=== PATIENT | male | born 1970 | race Caucasian/White ===

== ENCOUNTER 2024-04-13 09:59 | Inpatient (IN) | payer OTHER ==
--- OUTSIDE RECORDS SUMMARY | 2024-04-13 10:04 | XMS REPORT | Clinical Summary ---
Author Name Unknown Organization [facility] Address [address] [place] [address] Care Team Providers Care Pharmacoepidemiologist Name Role Phone Doe Tse MD Unavailable [phone] Sanchez Blanchard MD Primary Care Provider Zack Arcos MD Unavailable [phone] Nakul Angeles MD Unavailable + Peterson Rhodes MD Unavailable Kelvin Delong MD Unavailable Allergies Active Allergy Reactions Criticality Noted Date Comments Penicillins Hives,Rash Low 10/04/2017 Medications Medication Sig Dispensed Refills Start Date End Date Status ticagrelor (BRILINTA) 90 mg tablet Take 1 tablet (90 mg) by mouth daily. Active metFORMIN (GLUCOPHAGE-XR) 750 mg 24 hr tablet TAKE 1 TABLET BY MOUTH TWICE DAILY WITH MEALS 12/16/2020 Active omeprazole (PriLOSEC) 20 mg capsule Take 1 capsule (20 mg) by mouth. Active Jardiance 25 mg tab TAKE 1 TABLET BY MOUTH EVERY DAY 12/16/2020 Active lisinopril (PRINIVIL,ZESTRIL) 20 mg tablet 01/06/2021 Active aspirin 81 mg EC tablet Take 1 tablet (81 mg) by mouth daily. Active rosuvastatin (CRESTOR) 20 mg tablet TAKE 1 TABLET BY MOUTH EVERY DAY 12/16/2020 Active ezetimibe (ZETIA) 10 mg tablet TAKE 1 TABLET BY MOUTH DAILY 10/31/2020 Active cholecalciferol, vitamin D3, 1,250 mcg (50,000 unit) capsule TK ONE C PO Q 2 WEEKS 07/07/2020 Active zinc 50 mg tab Take 50 mg by mouth daily. Active HYDROcodone-acetamino phen (Lorane) 5 mg-325 mg per tabletIndications:Met astatic malignant melanoma Take 1 tablet by mouth every 6 (six) hours as needed for severe pain. 5 tablet 01/26/2021 Active multivitamin tab tablet Take 1 tablet by mouth daily. Active glucosamine sulfate 500 mg tab Take by mouth daily. Active co-enzyme Q-10 30 mg capsule Take 1 capsule (30 mg) by mouth daily. Active Active Problems Problem Noted Date Diagnosed Date Encounter for follow-up exam ination after completed treatment for malignant neoplasm 10/07/2023 Kidney lesion 01/02/2023 Last Assessment & Plan: Stable, followed by Urology. Monitor. Alkaline phosphatase raised 01/14/2022 Last Assessment & Plan: Mildly elevated and stable at 148. We will continue to monitor. Imaging of brain abnormal 08/16/2021 Last Assessment & Plan: Monitor punctate focus of enhancement in the right basal ganglia on repeat MRI brain in 1 month. Screening for thyroid disorder 08/16/2021 Encounter for preprocedural laboratory examinati on 05/10/2021 Screening for cardiovascular conditions 05/10/20 21 Malignant melanoma of right upper limb including shoulder 02/20/2021 Last Assessment & Plan: MRI brain negative. CT CAP shows 1. Left renal complex cystic lesion, for urologic consultation, if clinically indicated. 2. Indeterminate hypoattenuating lesion within segment 2 of the liver, may relate to a hemangioma but could be further characterized by MRI, if clinically indicated. 3. Stable bilateral adrenal nodules, previously described as adenomas. These could be further characterized at the same time by MRI, if clinically indicated. Mr. Cano will continue on observation. He will return in 8 weeks with MRI abdomen/ pelvis for further evaluation of the liver and left renal cyst. He will continue self-skin and job exams in the interim and will notify us of any changes to his health status. 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 His diabetes is managed by his PCP, who he is seeing tomorrow. Continue management per his PCP. 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 His most recent stent placement was in 06/2020. He will be evaluated in the [facility], who may recommend a Cardiology Consult as well. They will advise on best practice in terms of withholding his anticoagulation in terms of timing with surgery. Metastatic malignant melanoma 01/06/2021 Cancer Staging:Pathologic stage from 01/26/2021:Stage IIIA(pT2a, pN1a, cM0) - Signed by Nicole Zelaya PA on 02/20/2021 Overview: Added automatically from request for surgery [id number] Last Assessment & Plan: Mr. Cano is a 53 y/o male who is approaching 3 years s/p surgical management of a Stage IIIA melanoma of the RUE. He no evidence of recurrence or metastasis on clinical exam or US today. He does have, on FBSE, a skin lesion with asymmetry of dark pigment noted on the right anterior thigh for which biopsy was being considered. He elected to leave the clinic before Dr. Blanchard could see him. 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 We will plan to see him back 4 months with repeat US of his right axilla. Resolved Problems Problem Noted Date Diagnosed Date Resolved Date Encounter for other preprocedural examination 09/13/20 10/07/2023 Encounters Date Type Department Care Team Description 12/23/2023 11:30 AM WILLOW WORKER Follow-Up [facility] [facility], 9th [place] [address] Sanchez Blanchard MD Metastatic malignant melanoma (Primary Dx) 12/23/2023 9:30 AM WILLOW WORKER Ancillary Procedure General Ultrasound [address] [facility], 5th [place] [address] Sanchez Blanchard MD Metastatic malignant melanoma 12/23/2023 Travel 12/09/2023 3:00 PM WILLOW WORKER Telemedicine MD Griffith in [facility] Urology [address] [place] [id number] Peterson Rhodes MD Wolf, Elizabeth A., PA Metastatic malignant melanoma; Abnormal radiologic finding on diagnostic imaging of left kidney 12/04/2023 Orders Only MD Griffith in [facility] [employer] - Urology [address] [place] [id number] Beverley Crews PA 10/07/2023 9:00 AM WILLOW WORKER Telemedicine [facility] - Medical Oncology [address] [facility], 9th [facility] [place] [phone] Nakul Angeles MD Encounter for follow-up examination after completed treatment for malignant neoplasm (Primary Dx); Metastatic malignant melanoma; Secondary and unspecified malignant neoplasm of axilla and upper limb lymph nodes; Kidney lesion; Malignant melanoma of right upper limb including shoulder; Screening for thyroid disorder 10/04/2023 11:15 AM WILLOW WORKER Ancillary Procedure Radiology Outpatient Center [address] [place] [address] Vanessa Padilla PA Metastatic malignant melanoma; Secondary and unspecified malignant neoplasm of axilla and upper limb lymph nodes; 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; Malignant melanoma of right upper limb including shoulder 10/04/2023 8:25 AM WILLOW WORKER Ancillary Procedure CT Imaging [address] [facility], 7th Floor Elevator [place], [place] [phone] Vanessa Padilla PA Metastatic malignant melanoma; Secondary and unspecified malignant neoplasm of axilla and upper limb lymph nodes; 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; Malignant melanoma of right upper limb including shoulder 10/04/2023 8:10 AM WILLOW WORKER - 10/04/2023 11:59 PM WILLOW WORKER Hospital Encounter [facility] [address] [place] [address] Vanessa Padilla PA Metastatic malignant melanoma; Screening for thyroid disorder Discharge Disposition: Home 06/09/2023 Orders Only [facility] [address] [facility], 9th [place] [address] Elva Tay PA-C Metastatic malignant melanoma (Primary Dx) 05/27/2023 11:30 AM CDT [facility]Up [facility] - [facility] Oncology [address] [facility], 9th [place] [address] Sanchez Blanchard MD Metastatic malignant melanoma 05/27/2023 9:00 AM CDT Ancillary Procedure General Ultrasound [address] [facility], 5th [place] [address] Elva Tay, GERALDO Metastatic malignant melanoma 05/27/2023 Travel 05/24/2023 Orders Only MD [facility] in [facility] - Urology [address] [place] [address] Beverley Crews PA Metastatic malignant melanoma (Primary Dx); Abnormal radiologic finding on diagnostic imaging of left kidney 05/23/2023 2:00 PM CDT Telemedicine MD [facility] in [facility] - Urology [address] [place] [address] Peterson Rhodes MD Metastatic malignant melanoma (Primary Dx); Abnormal radiologic finding on diagnostic imaging of left kidney 05/13/2023 11:45 AM CDT Telemedicine [facility] Medical [facility]cology [address] [facility], 9th [place] [phone] Nakul Angeles MD Encounter for other preprocedural examination (Primary Dx); Metastatic malignant melanoma; Secondary and unspecified malignant neoplasm of axilla and upper limb lymph nodes; 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; Malignant melanoma of right upper limb including shoulder; Screening for thyroid disorder; Kidney lesion 05/13/2023 Orders Only Neuroradiology [address] [place] [address] Brian Lopez PA 05/10/2023 10:05 AM CDT - 05/10/2023 11:59 PM CDT Hospital Encounter Main CT IMAGING [address] [place] [address] Main [facility], 3rd [place] [address] Maida Melton PA Metastatic malignant melanoma; Secondary and unspecified malignant neoplasm of axilla and upper limb lymph nodes; Malignant melanoma of right upper limb including shoulder Discharge Disposition: Home 05/10/2023 9:55 AM CDT - 05/10/2023 10:04 AM CDT Hospital Encounter [facility] [address] [place] [address], [place] [address] Maida Melton PA Metastatic malignant melanoma Discharge Disposition: Home after 04/14/2023 Immunizations Name Administration Dates Next Due Moderna SARS-CoV-2 Vaccination 11/30/2020,2020 Surgical History Surgery Date Site/Laterality Comments BACK SURGERY 10/21/2009 - 10/20/2010 HERNIA REPAIR 10/21/2007 - 10/20/2008 CORONARY ANGIOPLASTY WITH STENT PLACEMENT 10/07/2017 [facility] int he mid LAD KNEE SURGERY Right x 5 EXCISION WIDE LOCAL TRUNK 12/01/2015 melanoma in situ of back CORONARY ANGIOPLASTY WITH STENT PLACEMENT date unknown -?09/2017 but per cardiac cath dated : "LCx Patent stent and moderate disease of the distal OM1 " CORONARY ANGIOPLASTY WITH STENT PLACEMENT 07/05/2020 per individual small group instructor's note, pt had "stent of proximal LAD". type of stent not noted VA EXCISION MAL LESION TRUNK/ARM/LEG 0.6-1.0 CM 01/26/2021 Right Procedure: EXCISION OF MALIGNANT LESION OF ARM(S)- right posterior upper arm; Surgeon: Sanchez Blanchard MD; Location: MAIN OR; Service: SURG ONC - [facility] VA INJ RADIOACTIVE TRACER FOR ID OF SENTINEL NODE 01/26/2021 Right Procedure: ISOTOPE INJECTION FOR SENTINEL NODE BIOPSY; Surgeon: Sanchez Blanchard MD; Location: MAIN OR; Service: SURG ONC - [facility] VA BX/EXC LYMPH NODE OPEN SUPERFICIAL 01/26/2021 Right Procedure: BIOPSY OR EXCISION OF SUPERFICIAL LYMPH NODE; Surgeon: Sanchez Blanchard MD; Location: MAIN OR; Service: SURG ONC - [facility] Medical History Medical History Date Comments Hypertension 2011 Type 2 diabetes mellitus 2016 on Jard iance and Metformin Melanoma in situ 12/01/2015 per patent, on his back, treated with WLE at [facility] Coronary arteriosclerosis 2017 pt den ies NE. per pt, he has 6 stents in placed. per pt 2 stents were placed in 09/2017 and then reportedly 2 wks later 2 addtl stents were placed. pt reports that he had "chest discomfort" and reportedly had 2 addtl stents in in 06/2020 Hypercholesterolemia Tobacco dependence caused by cigarettes Body mass index (BMI) 36.0-36.9, adult 1 group home use of antiplatelet wilson s been on DAPT with aspirin and Brilinta for cardiac stents since 09/2017 Sleep disorder uses CPAP Sleep apnea Obstructive sleep apnea does not use CPAP Gastroesophageal reflux disease Family History Medical History Relation Name Comments Diabetes Father Hypertension Father VTE Father PE was COD at 7 7 Melanoma Maternal Grandfather Breast cancer Mother Prostate cancer Paternal Grandfather Bleeding Disorder Neg Hx Coronary artery disease Neg Hx Stroke Neg Hx Relation Name Status Comments Father Maternal Grandfather Mother Paternal Grandfather Social History Tobacco Use Types Packs/Day Years Used Date Smoking Tobacco: Every Day Cigarettes 2 30 Smokeless Tobacco: Never Tobacco Cessation:Ready to Q uit: No; Counseling Given: Yes Alcohol Use Standard Drinks/Week Comments Not Currently 30 (1 standard drink = 0.6 oz pu re alcohol) 4-5 12 oz of beer per day Sex and Gender Information Value Date Recorded Sex Assigned at Not on file Gender Identity Not on file Sexual Orientation Not on file Job Start Date Occupation Industry Not on file Not on file Not on file Obstetrics History Last Filed Vital Signs Vital Sign Reading Time Taken Comments Blood Pressure 119/76 12/23/2023 11:27 AM WILLOW WORKER Pulse 102 12/23/2023 11:27 AM WILLOW WORKER Temperature 36.8 C (98.2 F) 12/23/2023 1 1:27 AM WILLOW WORKER Respiratory Rate 18 12/23/2023 11:2 7 AM WILLOW WORKER Oxygen Saturation - - Inhaled Oxygen Concentration - - Weight 118.5 kg (261 lb 3.9 oz) 023 11:38 AM WILLOW WORKER Height - - Body Mass Index 36.45 01/25/2023 10:03 AM CDT Plan of Treatment Upcoming Encounters Date Type Department Care Team (Late st Contact Info) Description 04/26/2024 6:15 AM CDT Appointment Main CT IMAGING [facility], 3rd [place] [address] [place] [address] [place] [phone] [email or web address] 04/26/2024 8:45 AM CDT Appointment [facility] [address] [place] [address], [place] [address] Vanessa Padilla PA [address] [place] [address] [email or web address] 04/27/2024 9:30 AM CDT Ancillary Procedure General Ultrasound [address] [facility], 5th [place] [address] Elva Tay PA-C [address] [place] [address] [email or web address] 04/27/2024 11:15 AM CDT Follow-Up [facility] - Surgical Oncology [address] [facility], 9th [place] [address] Sanchez Blanchard MD [address] [place] [address] [email or web address] 04/28/2024 11:45 AM CDT Telemedicine [facility] - Medical Oncology [address] [facility] Main Bldg, 9th [place] [address] Nakul Angeles MD [address] [place], [place] [id number] [email or web address] 04/28/2024 2:30 PM CDT Telemedicine MD Griffith in [facility] - Urology [address] [place] [address] Peterson Rhodes MD [address] [place], [place] [phone] [email or web address] Health Maintenance Due Date Last Done Comments COVID-19 Vaccine ( season) 06/21/202307/2021, 11/09/2020 Influenza Vaccine 06/21/2024 Medical Devices Implanted Type Area [employer] Device Identifier Shelf Expiration Date Model / Serial / Lot Cardiac Stents Heart Procedures Procedure Name Priority Date/Time Associated Diagnosis Comments US UPPER EXTREMITY LIMITED RIGHT Routine 12/23/2023 9:45 AM WILLOW WORKER Metastatic malignant melanoma MRI BRAIN W WO CONTRAST Routine 10/04/20 12:49 PM WILLOW WORKER Metastatic malignant melanoma 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 Malignant melanoma of right upper limb including shoulder .CBC Routine 10/04/2023 11:09 AM WILLOW WORKER Metastatic malignant melanoma URIC ACID Routine 10/04/2023 11:09 AM WILLOW WORKER Metastatic malignant melanoma THYROID STIMULATING HORMONE Routine 10/04/2023 11:09 AM WILLOW WORKER Metastatic malignant melanoma Screening for thyroid disorder MAGNESIUM LEVEL Routine 10/04/2023 11:09 AM WILLOW WORKER Metastatic malignant melanoma LACTATE DEHYDROGENASE Routine 10/04/2023 11:09 AM WILLOW WORKER Metastatic malignant melanoma FREE THYROXINE Routine 10/04/2023 11:09 AM WILLOW WORKER Metastatic malignant melanoma Screening for thyroid disorder COMPREHENSIVE METABOLIC PANEL Routine 10/04/2023 11:09 AM WILLOW WORKER Metastatic malignant melanoma COMPLETE BLOOD COUNT W/ DIFFERENTIAL Routine 10/04/2023 11:09 AM WILLOW WORKER Metastatic malignant melanoma CT CHEST ABDOMEN PELVIS W CONTRAST Routine 10/04/2023 10:38 AM WILLOW WORKER Metastatic malignant melanoma 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 Malignant melanoma of right upper limb including shoulder POC CREATININE Routine 10/04/2023 10:08 AM WILLOW WORKER US UPPER EXTREMITY LIMITED RIGHT Routine 05/27/2023 8:56 AM CDT Metastatic malignant melanoma CT CHEST ABDOMEN PELVIS W CONTRAST Routine 05/10/2023 12:46 PM CDT Metastatic malignant melanoma Secondary and unspecified malignant neoplasm of axilla and upper limb lymph nodes Malignant melanoma of right upper limb including shoulder FRACTIONATED BILIRUBIN Routine 10:02 AM CDT Metastatic malignant melanoma TOTAL PROTEIN Routine 05/10/2023 10:02 AM CDT Metastatic malignant melanoma ASPARTATE AMINOTRANSFERASE Routine 05/10/2023 10:02 AM CDT Metastatic malignant melanoma ALANINE AMINOTRANSFERASE Routine 023 10:02 AM CDT Metastatic malignant melanoma ALKALINE PHOSPHATASE Routine 05/10/2023 10:02 AM CDT Metastatic malignant melanoma ALBUMIN LEVEL Routine 05/10/2023 10:02 AM CDT Metastatic malignant melanoma CALCIUM LEVEL Routine 05/10/2023 10:02 AM CDT Metastatic malignant melanoma .GLOMERULAR FILTRATION RATE Routine 05/10/2023 10:02 AM CDT Metastatic malignant melanoma SERUM CREATININE Routine 05/10/2023 10:0 2 AM CDT Metastatic malignant melanoma ELECTROLYTE PANEL Routine 05/10/2023 10: 02 AM CDT Metastatic malignant melanoma BLOOD UREA NITROGEN Routine 05/10/2023 1 0:02 AM CDT Metastatic malignant melanoma GLUCOSE LEVEL Routine 05/10/2023 10:02 AM CDT Metastatic malignant melanoma DIFFERENTIAL Routine 05/10/2023 10:02 AM CDT Metastatic malignant melanoma .CBC Routine 05/10/2023 10:02 AM CDT Metastatic malignant melanoma COMPREHENSIVE METABOLIC PANEL Routine 05/10/2023 10:02 AM CDT Metastatic malignant melanoma LACTATE DEHYDROGENASE Routine 05/10/2023 10:02 AM CDT Metastatic malignant melanoma COMPLETE BLOOD COUNT W/ DIFFERENTIAL Routine 05/10/2023 10:02 AM CDT Metastatic malignant melanoma after 04/14/2023 Results * US Upper Extremity Limited Right (12/23/2023 9:45 AM WILLOW WORKER) Only the most recent of2 resultswithin the time period is included. Anatomical Region Laterality Modality Arm, Extremity Right Ultrasound 12/23/2023 9:48 AM WILLOW WORKER Impressions 12/23/2023 9:52 AM WILLOW WORKER Stable postsurgical changes. No adenopathy, collection or mass seen in the right axilla Narrative 12/23/2023 9:52 AM WILLOW WORKER FULL RESULT: Examination: US UPPER EXTREMITY LIMITED RIGHT on 12/23/2023 9:45 AM Clinical History: Metastatic malignant melanoma Indication: Melanoma Comparison: 05/27/2023 Technique: The right axilla was evaluated with grayscale and color Doppler ultrasound. Findings: Postsurgical changes are seen in the right axilla. No evidence of recurrence or fluid collection. There is no axillary adenopathy. Procedure Note Shad Meadows MD - 12/23/2023 FULL RESULT: Examination: US UPPER EXTREMITY LIMITED RIGHT on 12/23/2023 9:45 AM Clinical History: Metastatic malignant melanoma Indication: Melanoma Comparison: 05/27/2023 Technique: The right axilla was evaluated with grayscale and color Dopplerultrasound. Findings: Postsurgical changes are seen in the right axilla. No evidence ofrecurrence or fluid collection. There is no axillary adenopathy. IMPRESSION: Stable postsurgical changes. No adenopathy, collection or mass seen in theright axilla Sanchez Blanchard MD IMG US ORDERABL ES * MRI Brain with and without Contrast (10/04/2023 12:49 PM WILLOW WORKER) Anatomical Region Laterality Modality Head Magnetic Resonan ce 10/04/2023 10:5 5 PM WILLOW WORKER Impressions 10/04/2023 11:02 PM WILLOW WORKER 1. Stable findings: No evidence for intracranial metastases or acute intracranial pathology 2. No worrisome osseous lesions. Narrative 10/04/2023 11:02 PM WILLOW WORKER FULL RESULT: Examination: MRI BRAIN W WO CONTRAST on 10/04/2023 12:49 PM. 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 FINDINGS: Intracranial: The ventricles are normal in size and within the midline. No restricted diffusion or new foci of T2 susceptibility. Stable punctate susceptibility signal in the right temporal lobe. Stable at least since the baseline study 10/25/2020. Intracranial vascular flow voids are maintained. No sellar/suprasellar abnormalities. No abnormal leptomeningeal or parenchymal enhancement. Extracranial: No suspicious osseous or orbital lesions. The paranasal sinuses are clear. Procedure Note Africa Hammonds MD - 10/04/2023 FULL RESULT: Examination: MRI BRAIN W WO CONTRAST on 10/04/2023 12:49 PM. 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 FINDINGS: Intracranial: The ventricles are normal in size and within the midline. No restricteddiffusion or new foci of T2 susceptibility. Stable punctatesusceptibility signal in the right temporal lobe. Stable at least sincethe baseline study 10/25/2020. Intracranial vascular flow voids aremaintained. No sellar/suprasellar abnormalities. No abnormalleptomeningeal or parenchymal enhancement. Extracranial: No suspicious osseous or orbital lesions. The paranasal sinuses are clear. IMPRESSION: 1. Stable findings: No evidence for intracranial metastases or acuteintracranial pathology 2. No worrisome osseous lesions. Vanessa [facility] [place] ORDERABLES * (ABNORMAL) .CBC (10/04/2023 11:09 AM [facility]) Only the most recent of2 resultswithin the time period is included. White Blood Cell 10.4 4.1 - 10.5 K/uL 10/04/2023 11:26 AM [facility] Red Blood Cell 4.98 4.30 - 6.04 M/uL 10/04/2023 11:26 AM [facility] Hemoglobin 16.6 13.3 - 17.4 g/dL 10/04/2023 11:26 AM [facility] Hematocrit 48.2 39.5 - 51.8 % 10/04/2023 11:26 AM [facility] Mean Cell Volume 97 82 - 99 fL 10/04/2023 11:26 AM [facility] Mean Cell Hemoglobin 33.3(H) 26.6 - 33.2 pg 10/04/2023 11:26 AM [facility] Mean Cell Hemoglobin Concentration 34.4 31.1 - 35.2 g/dL 10/04/2023 11:26 AM [facility] RDW-SD 46.4 37.5 - 49.7 fL 10/04/2023 11:26 AM [facility] Red Cell Diameter Width 13.0 11.6 - 15.5 % 10/04/2023 11:26 AM [facility] Platelet 257 160 - 397 K/uL 10/04/2023 11:26 AM [facility] Mean Platelet Volume 9.4 9.1 - 12.6 fL 10/04/2023 11:26 AM [facility] INRBC 0.0 0.0 - 0.1 /100 WBC 10/04/2023 11:26 AM [facility] Comment: The INRBC (instrument NRBC) value reflects the enumeration of nucleated red blood cells contained in a 200uL sample of whole blood analyzed by the instrument. This value may differ from the NRBC value reported in a manual differential, which is based on a 100 cell differential. Neutrophil % 67.0 43.2 - 72.7 % 10/04/2023 11:26 AM [facility] Lymphocyte % 20.8 16.8 - 46.2 % 10/04/2023 11:26 AM [facility] Monocyte % 8.4 5.1 - 12.5 % 10/04/2023 11:26 AM [facility] Eosinophil % 2.2 0.4 - 6.3 % 10/04/2023 11:26 AM [facility] Basophil % 0.6 0.2 - 1.4 % 10/04/2023 11:26 AM [facility] IGRE % 1.0 0.1 - 1.5 % 10/04/2023 11:26 AM [facility] Comment:The IGRE% includes M etamyelocytes, Myelocytes and Promyelocytes. Neutrophil Abs 6.94 1.95 - 7.25 K/uL 10/04/2023 11:26 AM [facility] Lymphocyte Abs 2.16 1.01 - 3.24 K/uL 10/04/2023 11:26 AM [facility] Monocyte Abs 0.87(H) 0.24 - 0.85 K/uL 10/04/2023 11:26 AM [facility] Eosinophil Abs 0.23 0.02 - 0.50 K/uL 10/04/2023 11:26 AM [facility] Basophil Abs 0.06 0.02 - 0.09 K/uL 10/04/2023 11:26 AM [facility] IG Abs 0.10 0.01 - 0.12 K/uL 10/04/2023 11:26 AM [facility] Blood Venipuncture / Unknown 10/04/2023 11:09 AM [employer] WORK[employer] 10/04/2023 11:10 AM [facility] Vanessa LUIS LAB BLOOD ORDERABLE S [facility] [address] [place] [address] * (ABNORMAL) Comprehensive Metabolic Panel (10/04/2023 11:09 AM [facility]) Bilirubin Total 0.3 <=1.2 mg/dL 10/04/2023 11:57 AM [facility] Comment: Indocyanine Green (ICG) may cause falsely elevated bilirubin results. Total and direct bilirubin must not be measured from samples containing indocyanine green. False elevation of total bilirubin can be seen in patients with IgG concentrations above 28 g/L. This result was previously suppressed from the chart. Bilirubin Direct <0.2 <=0.3 mg/dL 10/04/2023 11:57 AM [facility] Comment: Indocyanine Green (ICG) may cause falsely elevated bilirubin results. Total and direct bilirubin must not be measured from samples containing indocyanine green. This result was previously suppressed from the chart. Bilirubin Indirect 2022 11:57 AM [facility] Comment:Unable to calculate Indirect Bilirubin result due to some parameters are outside reportable range eGFR 111 >=60 mL/min/1. 73 sq. m 10/04/2023 11:57 AM [facility] Comment: The eGFRcr is calculated with the 2020 CKD-EPI creatinine equation using creatinine, patient's age, and sex for adults 18 years of age and older. Other factors, especially muscle mass, may affect accuracy and need to be considered. According to the Kidney Disease: Improving Global Outcomes (KDIGO) CKD Work Group 2012 Clinical Practice Guideline, chronic kidney disease (CKD) is defined as the abnormalities of kidney structure or function, present for more than 3 months, with implications for health. CKD should be classified by cause, GFR category, and albuminuria category. KDIGO guidelines provide the following GFR categories. Stage / Description / GFR mL/min/1.73 m2: G1* / Normal or high / >= 90 G2* / Mildly decreased / 60-89 G3a / Mildly to moderately decreased / 45-59 G3b / Moderately to severely decreased / 30-44 G4 / Severely decreased / 15-29 G5 / Kidney failure / <15 *In the absence of evidence of kidney damage, neither G1 nor G2 fulfill criteria for CKD. Tot Protein 7.3 6.4 - 8.3 gm/dL 10/04/2023 11:57 AM [facility] Comment:This result was prev iously suppressed from the chart. Calcium Level Total 9.5 8.2 - 10.2 mg/dL 10/04/2023 11:57 AM [facility] Comment:This result was prev iously suppressed from the chart. Alkaline Phosphatase 98 40 - 129 U/L 10/04/2023 11:57 AM [facility] Comment:This result was prev iously suppressed from the chart. Albumin Level 4.2 3.5 - 5.2 gm/dL 10/04/2023 11:57 AM [facility] Comment:This result was prev iously suppressed from the chart. AST 20 <=40 U/L 10/04/2023 11:57 AM [facility] Comment:This result was prev iously suppressed from the chart. ALT 27 <=41 U/L 10/04/2023 11:57 AM [facility] Comment:This result was prev iously suppressed from the chart. Sodium Level 133(L) 136 - 145 mmol/L 10/04/2023 11:57 AM [facility] Comment:This result was prev iously suppressed from the chart. Potassium Level 4.3 3.4 - 4.5 mmol/L 10/04/2023 11:57 AM [facility] Comment:This result was prev iously suppressed from the chart. Chloride 98 98 - 107 mmol/L 10/04/2023 11:57 AM [facility] Comment:This result was prev iously suppressed from the chart. CO2 25 22 - 29 mmol/L 10/04/2023 11:57 AM [facility] Comment:This result was prev iously suppressed from the chart. Anion Gap 10 4 - 14 mmol/L 10/04/2023 11:57 AM [facility] Comment:This result was prev iously suppressed from the chart. Creatinine 0.71 0.67 - 1.17 mg/dL 10/04/2023 11:57 AM [facility] Comment:This result was prev iously suppressed from the chart. BUN 11 6 - 23 mg/dL 10/04/2023 11:57 AM [facility] Comment:This result was prev iously suppressed from the chart. Glucose Level 132(H) 70 - 99 mg/dL 10/04/2023 11:57 AM [facility] Comment: Effective 05/16/16, the glucose reference intervals have been updated based on [place] [employer] guidelines (Standards of Medical Care in Diabetes 2016. Diabetes Care 2016; 39: S13-S22). Fasting blood glucose: Normal: 70-99 mg/dL Impaired fasting glucose (increased risk for diabetes or pre-diabetes): 100-125 mg/dL Diabetes mellitus: >/=126 mg/dL Random blood glucose: Normal: 70-199 mg/dL Note: Random glucose >100 mg/dL is associated with increased risk for diabetes. This result was previously suppressed from the chart. Blood Venipuncture / Unknown 10/04/2023 11:09 AM [employer] WORKER 10/04/2023 11:10 AM WILLOW WORKER Vanessa LUIS LAB BLOOD ORDERABLE S Performing Organization Address [facility] Co de Phone Number [address] [place] [address] * Uric Acid (10/04/2023 11:09 AM WILLOW WORKER) Uric Acid 4.4 3.4 - 7.0 mg/dL 10/04/2023 11:57 AM [facility] Blood Venipuncture / Unknown 10/04/2023 11:09 AM [employer] WORKER 10/04/2023 11:10 AM [employer] WORKER Vanessa LUIS LAB BLOOD ORDERABLE S Performing Organization Address [facility] Co de Phone Number [address] [place] [address] * TSH (10/04/2023 11:09 AM WILLOW WORKER) Thyroid Stimulating Hormone 0.99 0.27 - 4.20 mcunit/mL 10/04/2023 12:02 PM WILLOW WORKER [facility] Blood Venipuncture / Unknown 10/04/2023 11:09 AM [employer] WORKER 10/04/2023 11:10 AM [employer] WORKER Vanessa Padilla PA LAB BLOOD ORDERABLE S Performing Organization Address City/[facility]/ZIP Co de Phone Number [address] [place] [address] * Free T4 (10/04/2023 11:09 AM WILLOW WORKER) T4 (Thyroxine) Free 1.23 0.93 - 1.70 ng/dL 10/04/2023 12:02 PM [facility] Blood Venipuncture / Unknown 10/04/2023 11:09 AM [employer] WORKER 10/04/2023 11:10 AM [employer] WORKER Vanessa Padilla PA LAB BLOOD ORDERABLE S Performing Organization Address [facility] Co de Phone Number [address] [place] [address] * Magnesium Level (10/04/2023 11:09 AM WILLOW WORKER) Magnesium Level 2.3 1.6 - 2.6 mg/dL 10/04/2023 11:57 AM [facility] Blood Venipuncture / Unknown 10/04/2023 11:09 AM WILLOW WORKER 10/04/2023 11:10 AM [employer] WORKER Vanessa Padilla PA LAB BLOOD ORDERABLE S Performing Organization Address City/[facility] Co de Phone Number [address] [place] [address] * LDH (10/04/2023 11:09 AM WILLOW WORKER) Only the most recent of2 resultswithin the time period is included. LDH 147 135 - 225 U/L 10/04/2023 11:57 AM [facility] Blood Venipuncture / Unknown 10/04/2023 11:09 AM WILLOW WORKER 10/04/2023 11:10 AM WILLOW WORKER Narrative [facility] - 10/04/2023 11:57 AM WILLOW WORKER Results greater than 1651 U/L may not be reliable due to matrix effect with extended dilution as it exceeds the cloud services architect's recommended limit. Caution should be exercised when interpreting such values and done in conjunction with clinical context. Vanessa LUIS LAB BLOOD ORDERABLE S [facility] [address] [place] [address] * CT Chest Abdomen Pelvis with Contrast (10/04/2023 10:38 AM WILLOW WORKER) Only the most recent of2 resultswithin the time period is included. Anatomical Region Laterality Modality Abdomen, Pelvis, Chest Computed Tomography 10/04/2023 1:39 PM WILLOW WORKER Impressions 10/05/2023 7:04 PM WILLOW WORKER 1. Stable complex left renal cyst, larger than on 01/11/2021, possibly a renal cell carcinoma, to be followed/clinically correlated. 2. No definite CT evidence of metastatic disease. No change. ACTIONABLE ITEMS/RECOMMENDATIONS: See Impression. Narrative 10/05/2023 7:04 PM WILLOW WORKER FULL RESULT: Examination: CT CHEST ABDOMEN PELVIS W CONTRAST on 10/04/2023 10:38 AM. Clinical History: Metastatic malignant melanoma Secondary and unspecified malignant neoplasm of axilla and upper limb lymph nodes Personal history of melanoma in- situ Malignant melanoma of right upper limb including shoulder Indication: Cancer staging or restaging, Metastatic cancer suspected, Multiple incidental pulmonary nodules Comparison: Contrast enhanced CT dated 05/10/2023. Technique: CT of the chest, abdomen and pelvis was performed with oral and intravenous contrast. Additional information from EMR: Right upper extremity, 2020.. CHEST FINDINGS: Lungs and Pleura: Minimal emphysematous changes are noted. There are stable scattered subcentimeter pulmonary nodules (series 302 image 26, 30, 67, 68), stable back to 01/11/2021, likely benign, No definite new pulmonary nodules or masses are identified. No evidence of pleural effusions. Cardiomediastinum: The heart is normal in size. No pericardial effusion. Lymph Nodes: No abnormally enlarged mediastinal, hilar or right axillary nodes are identified. Postsurgical changes are again noted in the right axillary region. Evaluation of the left axillary and subpectoral region is degraded by beam hardening artifact from the IV contrast administration that has been implemented. Nodules are noted in the thyroid gland, nonspecific. Lines and Tubes: None. ABDOMEN AND PELVIS FINDINGS: Hepatobiliary: The liver remains unremarkable. No definite new focal liver lesions are identified. The gallbladder appears grossly unremarkable. No evidence of biliary duct dilatation. Spleen: The spleen remains unremarkable. No focal splenic lesions or splenomegaly. Pancreas: The pancreas remains unremarkable. No evidence of pancreatic duct dilatation. Adrenal Glands: There are stable bilateral adrenal nodules, on the left side measuring up to 2.4 cm (series 301 image 173), stable back to 01/11/2021, likely benign. Kidneys, Ureters, Bladder: In the left kidney, there is a complex renal cyst measuring 2.4 cm (series 301 image 198), similar compared to 05/10/2023, previously 1.7 cm on 01/11/2021, to be followed. The right kidney remains unremarkable. No hydronephrosis. No bladder masses. Gastrointestinal Tract: No obstruction. Pelvis Organs: Unremarkable Peritoneum/Retroperitoneum: No ascites. Lymph Nodes: No abnormally enlarged retrocrural, anterior diaphragmatic, retroperitoneal, mesenteric, pelvic or inguinal nodes are identified. MUSCULOSKELETAL: Some degenerative changes are noted. OTHER: Atherosclerotic changes are noted. Procedure Note Radha Skelton MD - 10/05/2023 FULL RESULT: Examination: CT CHEST ABDOMEN PELVIS W CONTRAST on 10/04/2023 10:38 AM. Clinical History: Metastatic malignant melanoma Secondary and unspecifiedmalignant neoplasm of axilla and upper limb lymph nodes Personal historyof melanoma in- situ Malignant melanoma of right upper limb includingshoulder Indication: Cancer staging or restaging, Metastatic cancer suspected,Multiple incidental pulmonary nodules Comparison: Contrast enhanced CT dated 05/10/2023. Technique: CT of the chest, abdomen and pelvis was performed with oral andintravenous contrast. Additional information from EMR: Right upper extremity, 2020.. CHEST FINDINGS: Lungs and Pleura: Minimal emphysematous changes are noted. There arestable scattered subcentimeter pulmonary nodules (series 302 image 26, 30,67, 68), stable back to 01/11/2021, likely benign, No definite newpulmonary nodules or masses are identified. No evidence of pleural effusions. Cardiomediastinum: The heart is normal in size. No pericardial effusion. Lymph Nodes: No abnormally enlarged mediastinal, hilar or right axillarynodes are identified. Postsurgical changes are again noted in the rightaxillary region. Evaluation of the left axillary and subpectoral region isdegraded by beam hardening artifact from the IV contrast administrationthat has been implemented. Nodules are noted in the thyroid gland, nonspecific. Lines and Tubes: None. ABDOMEN AND PELVIS FINDINGS: Hepatobiliary: The liver remains unremarkable. No definite new focalliver lesions are identified. The gallbladder appears grossly unremarkable. No evidence of biliary ductdilatation. Spleen: The spleen remains unremarkable. No focal splenic lesions orsplenomegaly. Pancreas: The pancreas remains unremarkable. No evidence of pancreaticduct dilatation. Adrenal Glands: There are stable bilateral adrenal nodules, on the leftside measuring up to 2.4 cm (series 301 image 173), stable back to01/11/2021, likely benign. Kidneys, Ureters, Bladder: In the left kidney, there is a complex renalcyst measuring 2.4 cm (series 301 image 198), similar compared to05/10/2023, previously 1.7 cm on 01/11/2021, to be followed. The rightkidney remains unremarkable. No hydronephrosis. No bladder masses. Gastrointestinal Tract: No obstruction. Pelvis Organs: Unremarkable Peritoneum/Retroperitoneum: No ascites. Lymph Nodes: No abnormally enlarged retrocrural, anterior diaphragmatic,retroperitoneal, mesenteric, pelvic or inguinal nodes are identified. MUSCULOSKELETAL: Some degenerative changes are noted. OTHER: Atherosclerotic changes are noted. IMPRESSION: 1. Stable complex left renal cyst, larger than on 01/11/2021, possibly arenal cell carcinoma, to be followed/clinically correlated. 2. No definite CT evidence of metastatic disease. No change. ACTIONABLE ITEMS/RECOMMENDATIONS: See Impression. Vanessa LUIS [facility] [place] ORDERABLES * POC Creatinine (10/04/2023 10:08 AM WILLOW WORKER) POC Creatinine 0.6 0.6 - 1.3 mg/dL 10/04/2023 10:10 AM WILLOW WORKER [place] [facility] Comment:Medications, especia lly hydroxyurea or supplements, such as ascorbate, can interfere with test results causing a falsely and significantly higher result than expected. If a problem is suspected with a patient's result, a sample should be sent to the laboratory for confirmatory testing. POC eGFR 117 >=60 mL/min/1.7 3 sq. m 10/04/2023 10:10 AM [facility] Comment: The eGFRcr is calculated with the 2020 CKD-EPI creatinine equation using creatinine, patient's age, and sex for adults 18 years of age and older. Other factors, especially muscle mass, may affect accuracy and need to be considered. According to the Kidney Disease: Improving Global Outcomes (KDIGO) CKD Work Group 2012 Clinical Practice Guideline, chronic kidney disease (CKD) is defined as the abnormalities of kidney structure or function, present for more than 3 months, with implications for health. CKD should be classified by cause, GFR category, and albuminuria category. KDIGO guidelines provide the following GFR categories. Stage / Description / GFR mL/min/1.73 m2: G1* / Normal or high / >= 90 G2* / Mildly decreased / 60-89 G3a / Mildly to moderately decreased / 45-59 G3b / Moderately to severely decreased / 30-44 G4 / Severely decreased / 15-29 G5 / Kidney failure / <15 *In the absence of evidence of kidney damage, neither G1 nor G2 fulfill criteria for CKD. Blood 10/04/2023 10:0 8 AM WILLOW WORKER 10/04/2023 10:10 AM WILLOW WORKER Narrative [facility] - 10/04/2023 10:10 AM WILLOW WORKER Method description: The i-STAT is an analyzer used for in vitro quantification of various analytes in whole blood. The device uses a single disposable cartridge which contains microfabricated sensors, a calibration solution, fluidics system, and a waste chamber. Each test cartridge contains chemically sensitive biosensors on a silicon chip that are configured to perform specific tests. The microfabricated sensors measure analyte concentration by an electrochemical assay. Vanessa LUIS POCT ORDERABLES - D [facility] Unless otherwise noted, all lab tests performed by: Division of Pathology and Laboratory Medicine [address] [place] [id number] * .Serum Creatinine (05/10/2023 10:02 AM CDT) Creatinine 0.71 0.67 - 1.17 mg/dL [facility] Blood 05/10/2023 10:0 2 AM CDT 05/10/2023 10:34 AM CDT Maida LUIS LAB BLOOD ORDERABLES Performing Organization Address [facility] de Phone Number [facility] Unless otherwise noted, all lab tests performed by: Division of Pathology and Laboratory Medicine [address] [place] [id number] * Glomerular Filtration Rate (05/10/2023 10:02 AM CDT) eGFR 111 >=60 mL/min/1.7 3 sq. m [facility] Comment: The eGFRcr is calculated with the 2020 CKD-EPI creatinine equation using creatinine, patient's age, and sex for adults 18 years of age and older. Other factors, especially muscle mass, may affect accuracy and need to be considered. According to the Kidney Disease: Improving Global Outcomes (KDIGO) CKD Work Group 2012 Clinical Practice Guideline, chronic kidney disease (CKD) is defined as the abnormalities of kidney structure or function, present for more than 3 months, with implications for health. CKD should be classified by cause, GFR category, and albuminuria category. KDIGO guidelines provide the following GFR categories Stage Description GFR mL/min/1.73 m2 G1* Normal or high >= 90 G2* Mildly decreased 60-89 G3a Mildly to moderately decreased 45-59 G3b Moderately to severely decreased 30-44 G4 Severely decreased 15-29 G5 Kidney failure <15 *In the absence of evidence of kidney damage, neither G1 nor G2 fulfill criteria for CKD. Blood 05/10/2023 10:0 2 AM CDT 05/10/2023 10:34 AM CDT Maida LUIS LAB BLOOD ORDERABLES Performing Organization Address [facility] Co de Phone Number [facility] Unless otherwise noted, all lab tests performed by: Division of Pathology and Laboratory Medicine [address] [place] [id number] * Fractionated Bilirubin (05/10/2023 10:02 AM CDT) [facility] Bili Total 0.3 <=1.2 mg/dL [facility] Comment: Indocyanine Green (ICG) may cause falsely elevated bilirubin results. Total and direct bilirubin must not be measured from samples containing indocyanine green. False elevation of total bilirubin can be seen in patients with IgG concentrations above 28 g/L. Bili Direct <0.2 <=0.3 mg/dL [facility] Comment:Indocyanine Green (I CG) may cause falsely elevated bilirubin results. Total and direct bilirubin must not be measured from samples containing indocyanine green. Bili Indirect See Note 0.0 - 0.9 mg/dL [facility] Comment:Unable to calculate Indirect Bilirubin result due to some parameters are outside reportable range Blood 05/10/2023 10:0 2 AM CDT 05/10/2023 10:34 AM CDT Maida LUIS LAB BLOOD ORDERABLES [facility] Unless otherwise noted, all lab tests performed by: Division of Pathology and Laboratory Medicine [address] [place] [id number] * (ABNORMAL) Differential (05/10/2023 10:02 AM CDT) [facility] Neutrophil % 64.0 43.2 - 72.7 % [facility] Lymphocyte % 23.1 16.8 - 46.2 % [facility] Monocyte % 8.5 5.1 - 12.5 % [facility] Eosinophil % 2.4 0.4 - 6.3 % [facility] Basophil % 1.1 0.2 - 1.4 % [facility] IGRE % 0.9 0.1 - 1.5 % [facility] Comment:IGRE % count include s Metamyelocytes, Myelocytes, and Promyelocytes. Neutrophil Abs 6.51 1.95 - 7.25 K/uL [facility] Lymphocyte Abs 2.34 1.01 - 3.24 K/uL [facility] Monocyte Abs 0.86(H) 0.24 - 0.85 K/uL [facility] Eosinophil Abs 0.24 0.02 - 0.50 K/uL [facility] Basophil Abs 0.11(H) 0.02 - 0.09 K/uL [facility] IG Abs 0.09 0.01 - 0.12 K/uL [facility] Blood 05/10/2023 10:0 2 AM CDT 05/10/2023 10:28 AM CDT Maida Razia Melton PA LAB BLOOD ORDERABLES [facility] Unless otherwise noted, all lab tests performed by: Division of Pathology and Laboratory Medicine [address] [place] [phone] * BUN (05/10/2023 10:02 AM CDT) BUN 12 6 - 23 mg/dL [facility] Blood 05/10/2023 10:0 2 AM CDT 05/10/2023 10:34 AM CDT Maida Razia Melton PA LAB BLOOD ORDERABLES Performing Organization Address [facility] Co de Phone Number [facility] Unless otherwise noted, all lab tests performed by: Division of Pathology and Laboratory Medicine [address] [place] [phone] * ALT (05/10/2023 10:02 AM CDT) ALT 31 <=41 U/L [facility] Blood 05/10/2023 10:0 2 AM CDT 05/10/2023 10:34 AM CDT Maida Razia Melton PA LAB BLOOD ORDERABLES Performing Organization Address City/[facility]/ZIP Co de Phone Number [facility] Unless otherwise noted, all lab tests performed by: Division of Pathology and Laboratory Medicine [address] [place] [id number] * Aspartate Aminotransferase (05/10/2023 10:02 AM CDT) AST 26 <=40 U/L [facility] Blood 05/10/2023 10:0 2 AM CDT 05/10/2023 10:34 AM CDT Maida Melton PA LAB BLOOD ORDERABLES Performing Organization Address City/[facility]/ZIP Co de Phone Number [facility] Unless otherwise noted, all lab tests performed by: Division of Pathology and Laboratory Medicine [address] [place] [phone] * Total Protein (05/10/2023 10:02 AM CDT) Pathologist [facility] Total Protein 7.6 6.4 - 8.3 g/dL [facility] Blood 05/10/2023 10:0 2 AM CDT 05/10/2023 10:34 AM CDT Maida Melton PA LAB BLOOD ORDERABLES Performing Organization Address [facility] de Phone Number [facility] Unless otherwise noted, all lab tests performed by: Division of Pathology and Laboratory Medicine [address] [place] [phone] * Alkaline Phosphatase (05/10/2023 10:02 AM CDT) Alk Phos 94 40 - 129 U/L [facility] Blood 05/10/2023 10:0 2 AM CDT 05/10/2023 10:34 AM CDT Maida Carryodit Melton PA LAB BLOOD ORDERABLES Performing Organization Address [facility] de Phone Number [facility] Unless otherwise noted, all lab tests performed by: Division of Pathology and Laboratory Medicine [address] [place] [address] [phone] * (ABNORMAL) Glucose Level (05/10/2023 10:02 AM CDT) Glucose Level 133(H) 70 - 99 mg/dL [facility] Comment: Effective 05/16/16, the glucose reference intervals have been updated based on [place] [employer] guidelines (Standards of Medical Care in Diabetes 2016. Diabetes Care 2016; 39: S13-S22). Fasting blood glucose: Normal: 70-99 mg/dL Impaired fasting glucose (increased risk for diabetes or pre-diabetes): 100- 125 mg/dL Diabetes mellitus: >/=126 mg/dL Random blood glucose: Normal: 70-199 mg/dL Note: Random glucose >100 mg/dL is associated with increased risk for diabetes Blood 05/10/2023 10:0 2 AM CDT 05/10/2023 10:34 AM CDT Maida LUIS LAB BLOOD ORDERABLES Performing Organization Address City/[facility] Co de Phone Number [facility] Unless otherwise noted, all lab tests performed by: Division of Pathology and Laboratory Medicine [address] [place] [address] [phone] * Calcium Level (05/10/2023 10:02 AM CDT) Calcium Lvl 9.5 8.4 - 10.2 mg/dL [facility] Blood 05/10/2023 10:0 2 AM CDT 05/10/2023 10:34 AM CDT Maida LUIS LAB BLOOD ORDERABLES Performing Organization Address [facility] de Phone Number [facility] Unless otherwise noted, all lab tests performed by: Division of Pathology and Laboratory Medicine [address] [place] [address] [phone] * Albumin Level (05/10/2023 10:02 AM CDT) Albumin Lvl 4.2 3.5 - 5.2 gm/dL [facility] Blood 05/10/2023 10:0 2 AM CDT 05/10/2023 10:34 AM CDT Maida LUIS LAB BLOOD ORDERABLES Performing Organization Address City/[facility] Co de Phone Number [facility] Unless otherwise noted, all lab tests performed by: Division of Pathology and Laboratory Medicine [address] [place] [address] [phone] * (ABNORMAL) Electrolyte Panel (05/10/2023 10:02 AM CDT) Sodium Lvl 134(L) 136 - 145 mEq/L [facility] Potassium Lvl 4.6 3.5 - 5.1 mEq/L [facility] Chloride 99 98 - 107 mEq/L [facility] CO2 28 22 - 29 mEq/L [facility] Anion Gap 7 4 - 14 mEq/L [facility] Blood 05/10/2023 10:0 2 AM CDT 05/10/2023 10:34 AM CDT Maida LUIS LAB BLOOD ORDERABLES [facility] Unless otherwise noted, all lab tests performed by: Division of Pathology and Laboratory Medicine [address] [place] [address] [phone] after 04/14/2023 Care Teams Pharmacoepidemiologist Relationship Specialty Start Date End Date Doe Tse MD [facility] [place], [place] [id number] PCP - External Referring Dermatology 12/28/20 Sanchez Blanchard MD [address] [place] [address] [phone] [email or web address] PCP - General Melanoma Surgery 12/28/20 Zack Arcos MD [address] [place] [phone] Family Practice 02/22/21 Nakul Angeles MD [address] [place] [address] [phone] [email or web address] Consulting Physician Hematology and Oncology 02/20/21 Peterson Rhodes MD [address] [place] [address] [phone] [email or web address] Consulting Physician Urology 01/25/23 Kelvin Delong MD [address] [place] [address] [phone] [email or web address] Consulting Physician Internal Medicine 01/09/21
[2024-04-13] MEDS ORDERED: ACETAMINOPHEN 500 MG TAB PO PRN (12:21)
[2024-04-13] MEDS ORDERED: ALPRAZOLAM 0.25 MG TABLET PO PRN (12:21)
[2024-04-13] MEDS ORDERED: MORPHINE 4 MG/ML SYR IV PRN (12:21)
[2024-04-13 12:22] VITALS: BMI 34.5
--- NOTE | 2024-04-13 12:25 | P.HP ---
Certification for Inpatient Patient admitted to: Observation With expected LOS: <2 Midnights Patient will require the following post-hospital care: None Practitioner: I am a practitioner with admitting privileges, knowledge of patient current condition, hospital course, and medical plan of care. Services: Services provided to patient in accordance with Admission requirements found in Title 42 Section 412.3 of the Code of Federal Regulations Patient History Date of Service: 04/13/24 Reason for admission: chest pain rule out acute coronary syndrome History of Present Illness: Patient is a 54-year-old gentleman who came to the hospital with chest discomfort. Pain was mainly the sternal region. Patient has significant history of coronary artery disease with stent placement. Patient has numerous risk factors including 3 pack-a-day tobacco use. Patient has been on Brilinta and aspirin for the last 2 years. He has been told that he no longer needs Brilinta; However, because he continues to smoke his PCP advised him to continue taking Brilinta. Patient went into [facility] emergency room today because his chest pain was not letting up. His initial troponin and EKG were unremarkable. They spoke to his asbestos worker, Dr. Fong, in [place] who recommended patient be monitored overnight to be ruled out for acute coronary syndrome. I accepted transfer from [facility]. Will continue with current monitoring. Allergies Penicillins Adverse Reaction (Verified 04/13/24 12:23) Hives/Rash Home Medications: Glucosamine Sulfate 500 mg PO DAILY 04/13/24 Ubidecarenone/Vit E/Vit E Mix [Co-Enzyme Q10 100 mg Softgel] 30 mg PO DAILY 04/13/24 - Past Medical/Surgical History Has patient received pneumonia vaccine in the past: No Diabetic: Yes -: HTN -: DM2 -: Dyslipidemia -: cardiac catheterization stents 2019 - Family History Father Family History: Reviewed- Non-Contributory - Social History Smoking Status: Heavy Tobacco smoker (>10 cigarettes/day) Alcohol use: Yes CD- Drugs: No Caffeine use: Yes Place of Residence: Home Review of Systems 10-point ROS is otherwise unremarkable Physical Examination - Vital Signs Temperature: 98.0 F Blood Pressure: 109/65 Pulse: 86 Respirations: 16 Pulse Ox (%): 92 - Physical Exam General: Alert, In no apparent distress, Oriented x3 HEENT: Atraumatic, PERRLA, Mucous membr. moist/pink, EOMI, Sclerae nonicteric Neck: Supple, 2+ carotid pulse no bruit, No LAD, Without JVD or thyroid abnormality Respiratory: Clear to auscultation bilaterally, Normal air movement Cardiovascular: Regular rate/rhythm, Normal S1 S2, Systolic murmur Gastrointestinal: Normal bowel sounds, Soft and benign, Non-distended, No tenderness Musculoskeletal: No tenderness Integumentary: No rashes Neurological: Normal gait, Normal speech, Normal strength at 5/5 x4 extr, Normal tone, Normal affect Lymphatics: No axilla or inguinal lymphadenopathy Assessment & Plan - Problems (Diagnosis) (1) Chest pain due to coronary artery disease Current Visit: Yes Status: Acute (2) DM2 (diabetes mellitus, type 2) Current Visit: Yes Status: Acute (3) HTN (hypertension) Current Visit: Yes Status: Acute (4) CAD (coronary artery disease) Current Visit: Yes Status: Acute - Plan 1. Serial troponins and EKG 2. Appreciate Cardiology consultation 3. Echocardiogram and stress test if cardiology is agreeable 4. Anti-platelet therapy, anti coagulation, beta-steve, statin, and O2 as needed 5. IV morphine for pain 6. Nitro p.r.n. Discharge Plan: Home Plan to discharge in: 24 Hours - Advance Directives Does patient have a Living Will: No Does patient have a Durable POA for Healthcare: No - Code Status/Comfort Care Code Status Assessed: Yes Code Status: Full Code Critical Care: No Time Spent Managing PTS Care (In Minutes): 40
[2024-04-13] MEDS: ENOXAPARIN 40 MG/0.4 ML SQ SCH (17:00)
[2024-04-13 18:23] LABS: PT Prothrombin Time 10.5 SECONDS (9.4-12.5); Protime INR 0.95
[2024-04-13] MEDS: METOPROLOL TAR 50 MG TAB PO SCH (21:00)
--- NOTE | 2024-04-13 21:22 | CON ---
Date of Consultation: 04/13/2024 Reason For Consultation: Chest pain. History Of Present Illness: 54-year-old male, history of coronary artery disease, status post multip le stents. I put a stent on him in 2019, and he smokes 3 packs of cigarettes per day, comes in with chest pressure, radiates to the shoulder, neck, left upper extremity with minimal activities. He raul ys golf. He had to stop playing golf because of that, went home. He did okay over the weekend and t hen now he is having pain even at rest on and off, and pain-free at the present time. Past Medical History: Coronary artery disease, hypertension, diabetes, and dyslipidemia. Past Surgical History: Cardiac stents. Medications: Refer to reconciliation sheet for detailed list. Allergies: PENICILLIN. Family History: No premature coronary artery disease or cancer. Social History: Three packs of smoking everyday. Does not drink or use any drugs. Review of Systems: All systems were reviewed and they were negative except as mentioned in the HPI. Physical Examination: Vital Signs: Reviewed. Head and Neck: Pupils are equal, reactive to light. Intact eye movements. No JVD. No cervical lym phadenopathy. Neck is supple. Thyroid is not enlarged. Lungs: Clear to auscultation bilaterally. No rhonchi, wheezing, or crackles. No accessory muscle u se. Heart: Regular rate and rhythm. No extra sounds. Abdomen: Soft, nontender. Bowel sounds positive. No organomegaly. No masses or hernia. No rigidi ty or rebound. Extremities: No edema, clubbing, or cyanosis. Intact pulses. Skin: No rash. No nodule. Neurologic: Alert, awake, oriented x3. No acute focal deficits appreciated. Investigations: Troponin first set is negative. Rest of the labs are pending. Assessment And Recommendations: 1.Chest pain, very typical, suggestive of unstable angina. Continue baby aspirin and Brilinta. Mayank lees NPO past midnight for coronary angiogram tomorrow. Echo was reviewed and the ejection fraction is normal. 2.Hypertension. His blood pressure is well controlled. Continue current management. 3.Dyslipidemia. Recommend Lipitor 40 mg q.h.s. 4.Diabetes. Check sugars 3 times a day. Cover with regular insulin per sliding scale. SR/MODL Voice ID: [id number] Report ID: [id number]
[2024-04-13] MEDS: TICAGRELOR 90 MG TABLET PO SCH (21:49)
[2024-04-14] MEDS ORDERED: GLUCAGON 1 MG/VIAL IM PRN (03:32)
[2024-04-14] MEDS ORDERED: D50W 25 GM/50 ML SYRINGE IV PRN (03:32)
[2024-04-14] MEDS ORDERED: D10W 125 ML IV PRN (03:45)
[2024-04-14 04:24] LABS: Absolute Basophils 0.1 K/uL (0-0.5); Absolute Eosinophils 0.3 K/uL (0-0.5); Absolute Lymphocytes (CBC) 1.9 K/uL (0.7-4.9); Absolute Neutrophil 5.2 K/uL (1.8-8.0); Eosinophils % 4.1 % (0-4.4); Hematocrit 43.4 % (39.6-49.0); Hemoglobin 14.8 g/dL (13.6-17.9); MCH 33.2 pg (27.0-35.0); MCHC 34.2 g/dL (32.0-36.0); MPV 7.6 fL (7.6-11.3); Monocytes % 11.2 % (3.3-12.3); Neutrophils % 61.7 % (41.7-73.7); Platelets 266 thou/uL (152-406); RBC Red Blood Cell Count 4.47 M/uL (4.33-5.43); Red Cell Distribution Width 14.6 % (12.1-15.2)
[2024-04-14 04:41] LABS: Anion Gap 7.2 mEq/L (5.0-15.0); Potassium 4.2 mEq/L (3.5-5.1); Troponin High Sensitivity 5.2 pg/mL (<58.9)
[2024-04-14] MEDS ORDERED: LIDOCAINE 1% 20 ML MDV ONE (06:33)
[2024-04-14] MEDS ORDERED: HEPA 1000U/500MLS 2,000 UNIT/1,000 ML BAG IV ONE (06:33)
[2024-04-14] MEDS ORDERED: VERAPAMIL HCL 10 MG/4 ML VIAL IV ONE (06:33)
[2024-04-14] MEDS ORDERED: NITROGLYCERIN/D5W 50 MG/250 ML BTL IV ONE (06:33)
[2024-04-14] MEDS ORDERED: FENTANYL CITR 100 MCG/2 ML ONE (06:34)
[2024-04-14] MEDS ORDERED: MIDAZOLAM HCL 2 MG/2 ML INJ ONE (06:34)
[2024-04-14] MEDS ORDERED: NA CHLORIDE 0.9% 500 ML ONE ×2 (06:34→08:01)
[2024-04-14] MEDS ORDERED: ATROPINE SULF 1 MG/10 ML SYR IV ONE (06:34)
[2024-04-14] MEDS ORDERED: CLOPIDOGREL 75 MG TABLET ONE (06:35)
[2024-04-14] MEDS ORDERED: ASPIRIN 325 MG TAB ONE (06:35)
[2024-04-14] MEDS ORDERED: HEPARIN 10,000 UNIT/10 ML VIAL IV ONE (06:35)
[2024-04-14] MEDS ORDERED: TICAGRELOR 90 MG TABLET PO ONE (06:35)
[2024-04-14] MEDS ORDERED: HEPARIN 5000 UNIT/ML 1 ML VIAL ONE (06:35)
--- NOTE | 2024-04-14 06:42 | ECHO ---
HEIGHT: 5 ft 11 in WEIGHT: 248 lb 0 oz DATE OF STUDY: 04/13/[address]: Omid Mejia MD 2-DIMENSIONAL: YES M.MODE: YES DOPPLER: YES COLOR FLOW: YES TDS: PORTABLE: YES DEFINITY: BUBBLE STUDY: DIAGNOSIS: CHEST PAIN, RULE OUT ACUTE CORONARY SYNDROME CARDIAC HISTORY: CATHERIZATION: YES SURGERY: NO PROSTHETIC VALVE: NO PACEMAKER: NO MEASUREMENTS (cm) DIASTOLIC (NORMALS) SYSTOLIC (NORMALS) IVSd 1.2 (0.6-1.2) LA Diam 3.3 (1.9-4.0) LVEF 55-60% LVIDd 4.1 (3.5-5.7) LVIDs 2.9 (2.0-3.5) %FS 30% LVPWd 1.2 (0.6-1.2) Ao Diam 3.5 (2.0-3.7) 2 DIMENSIONAL ASSESSMENT: RIGHT ATRIUM: NORMAL LEFT ATRIUM: NORMAL RIGHT VENTRICLE: NORMAL LEFT VENTRICLE: NORMAL TRICUSPID VALVE: MILD TRICUSPID REGURGITATION MITRAL VALVE: NORMAL PULMONIC VALVE: NORMAL AORTIC VALVE: NORMAL PERICARDIAL EFFUSION: NONE AORTIC ROOT: NORMAL LEFT VENTRICULAR WALL MOTION: NORMAL DOPPLER/COLOR FLOW: MILD TRICUSPID REGURGITATION COMMENTS: 1. NORMAL LEFT VENTRICULAR EJECTION FRACTION 55-60% 2. NORMAL WALL MOTION 3. MILD TRICUSPID REGURGITATION TECHNOLOGIST: BRENDAN AGUIRRE
[2024-04-14] MEDS: ASPIRIN EC 81 MG TAB PO SCH (07:27)
[2024-04-14] MEDS: INSULIN REGULAR (HUMAN) 100 UNIT/ML SQ SCH (07:27)
[2024-04-14] MEDS ORDERED: Phenylephrine HCl 10 MG/ML 1 ML VIAL ONE ×2 (07:32→08:01)
[2024-04-14] MEDS ORDERED: NALOXONE 0.4 MG/ML VIAL ONE (07:34)
[2024-04-14] MEDS ORDERED: FLUMAZENIL 0.1 MG/ML (5 mL VIAL) IV ONE (07:34)
[2024-04-14] MEDS ORDERED: HEPA 1000U/500MLS 1,000 UNIT/500 ML BAG IV ONE (07:54)
--- NOTE | 2024-04-14 08:03 | P.PN ---
Date of Service: 04/14/24 Subjective Chest pain improved with as needed analgesics, n.p.o. for heart cath Review of Systems 10-point ROS is otherwise unremarkable Physical Examination - Vital Signs Reviewed - Physical Exam General: A&O x 3 HEENT: Atraumatic, PERRLA, Neck: Supple, 2+ carotid pulse no bruit, No LAD, Without JVD or thyroid abnormality Respiratory: Equal unlabored Cardiovascular: Regular rate/rhythm, Normal S1 S2, Systolic murmur Gastrointestinal: Soft and benign, Non-distended, Musculoskeletal: No tenderness Neurological: Normal gait, Normal speech, Normal strength at 5/5 x4 extr, Assessment & Plan - Problems (Diagnosis) (1) Chest pain due to coronary artery disease Current Visit: Yes Status: Acute (2) DM2 (diabetes mellitus, type 2) Current Visit: Yes Status: Acute (3) HTN (hypertension) Current Visit: Yes Status: Acute (4) CAD (coronary artery disease) Current Visit: Yes Status: Acute - Plan 1. Serial troponins and EKG 2. Appreciate Cardiology consultation 3. Echocardiogram and stress test if cardiology is agreeable 4. Anti-platelet therapy, anti coagulation, beta-steve, statin, and O2 as needed 5. IV morphine for pain 6. Nitro p.r.n. Discharge Plan: Home Plan to discharge in: 24 Hours - Advance Directives Does patient have a Living Will: No Does patient have a Durable POA for Healthcare
--- NOTE | 2024-04-14 08:08 | P.DS ---
Admission Date: 04/15/24 Discharge Date: 04/16/24 Disposition: ROUTINE DISCHARGE Discharge Condition: GOOD Reason for Admission: chest pain rule out acute coronary syndrome Brief History of Present Illness: Patient is a 54-year-old gentleman who came to the hospital with chest discomfort. Pain was mainly the sternal region. Patient has significant history of coronary artery disease with stent placement. Patient has numerous r isk factors including 3 pack-a-day tobacco use. Patient has been on Brilinta and aspirin for the last 2 years. He has been told that he no longer needs Brilinta; However, because he continues to smoke his PCP advised him to continue taking Brilinta. Patient went into [facility] emergency room today because his chest pain was not letting up. His initial troponin and EKG were unremarkable. They spoke to his hims coder, Dr. Fong, in [place] who recommended patient be monitored overnight to be ruled out for acute coronary syndrome. I accepted transfer from [facility]. Will continue with current monitoring. Physical Exam General: Alert, In no apparent distress, Oriented x3 HEENT: Atraumatic, PERRLA, Mucous membr. moist/pink, EOMI, Sclerae nonicteric Neck: Supple, 2+ carotid pulse no bruit, No LAD, Without JVD or thyroid abnormality Respiratory: Clear to auscultation bilaterally, Normal air movement Cardiovascular: Regular rate/rhythm, Normal S1 S2, Systolic murmur Gastrointestinal: Normal bowel sounds, Soft and benign, Non-distended, No tenderness Musculoskeletal: No tenderness Integumentary: No rashes Neurological: Normal gait, Normal speech, Normal strength at 5/5 x4 extr, Normal tone, Normal affect Lymphatics: No axilla or inguinal lymphadenopathy Hospital Course: 54 year-old patient with a past medical history of hypertension, diabetes, presented with chest pain. He was evaluated by cardiology, was noted to have unstable angina. Is psot stent placement by Dr Leyva, Condition improved with stent placement, as needed analgesics, patient is on antiplatelets aspirin, Brilinta. Plan for cardiac cath with cardiology. Patient tolerating diet, stable for discharge to home with follow-up appointment with primary care physician. Follow-up with cardiology after discharge, 04/16 PCI -Moderate RCA disease and widely patent LAD and left circumflex stent Dr Leyva Plan: Aspirin, Brilinta, high-dose statin. The patient can be released today. PROBLEM: Unstable angina-valuated by cardiology continue antiplatelets, follow-up with cardiology after discharge, Dyslipidemia continue Lipitor 40 at bedtime Diabetes-educated on blood glucose control, Rad/Lab/Micro: Serial troponins negative Lipid panel normal 04/13 Echocardiogram COMMENTS: 1. NORMAL LEFT VENTRICULAR EJECTION FRACTION 55-60% 2. NORMAL WALL MOTION 3. MILD TRICUSPID REGURGITATION Continue home medicines as previously prescribed GOAL: Clear understanding of disease process INSTRUCTIONS: Physician Discharge Instructions: -Follow-up with PCP in 1 to 2 weeks -Please call Dr. Mejia at [phone] if any questions regarding hospital stay -Please call nursing station at [phone] if any nursing or medication questions -Return to the emergency room if symptoms worsen Diet: ADA, low sodium Activity: Fall precautions Vital Signs/Physical Exam: Temp Pulse Resp BP Pulse Ox 98.7 F 91 H 20 112/56 L 94 04/14/24 04:00 04/14/24 04:00 04/14/24 04:00 04/14/24 04:00 04/14/24 04:00 Laboratory Data at Discharge: WBC 8.50 thou/uL (4.3-10.9) 04/14/24 03:52 Hgb 14.8 g/dL (13.6-17.9) 04/14/24 03:52 Hct 43.4 % (39.6-49.0) 04/14/24 03:52 Plt Count 266 thou/uL (152-406) 04/14/24 03:52 PT 10.5 SECONDS (9.4-12.5) 04/13/24 17:54 INR 0.95 04/13/24 17:54 APTT 37.8 SECONDS (24.3-36.9) H 04/13/24 17:54 Sodium 138 mEq/L (136-145) 04/14/24 03:52 Potassium 4.2 mEq/L (3.5-5.1) 04/14/24 03:52 BUN 18 mg/dL (7-18) 04/14/24 03:52 Creatinine 0.90 mg/dL (0.70-1.30) 04/14/24 03:52 Glucose 134 mg/dL (74-106) H 04/14/24 03:52 Triglycerides 145 mg/dL (<150) 04/14/24 03:52 Cholesterol 102 mg/dL (<200) 04/14/24 03:52 HDL Cholesterol 45 mg/dL (40-60) 04/14/24 03:52 Cholesterol/HDL Ratio 2.27 04/14/24 03:52 Home Medications: Aspirin 81 mg PO DAILY 04/13/24 Cholecalciferol (Vitamin D3) [Vitamin D 1000 Iu Tab*] 1,000 unit PO DAILY 04/13/24 Empagliflozin [Jardiance] 25 mg PO DAILY 04/13/24 Ezetimibe/Rosuvastatin Calcium [Rosuvastatin-Ezetimibe 20-10Mg] 20 mg PO BEDTIME 04/13/24 Glucosamine Sulfate 500 mg PO DAILY 04/13/24 Omeprazole 20 mg PO DAILY 04/13/24 Ubidecarenone/Vit E/Vit E Mix [Co-Enzyme Q10 100 mg Softgel] 30 mg PO DAILY 04/13/24 Zinc Gluconate [Zinc] 50 mg PO DAILY 04/13/24 lisinopriL [Lisinopril] 20 mg PO DAILY 04/13/24 Atorvastatin Calcium [Lipitor] 80 mg PO BEDTIME #30 tab 04/16/24 Metoprolol Tartrate [Lopressor*] 50 mg PO BID #60 tab 04/16/24 Ticagrelor [Brilinta*] 90 mg PO BID #60 tab 04/16/24 New Medications: Ticagrelor [Brilinta*] 90 mg PO BID #60 tab Atorvastatin Calcium [Lipitor] 80 mg PO BEDTIME #30 tab Metoprolol Tartrate [Lopressor*] 50 mg PO BID #60 tab Physician Discharge Instructions: 54 year-old patient with a past medical history of hypertension, diabetes, presented with chest pain. He was evaluated by cardiology, was noted to have unstable angina. Condition improved with as needed analgesics, patient is on antiplatelets aspirin, Brilinta. Plan for cardiac cath with cardiology. Pt was s/p stent. Right heart angiogram with no intervention. Patient tolerating diet, stable for discharge to home with follow-up appointment with primary care physician. Follow-up with cardiology after DC PROBLEM: Unstable angina-valuated by cardiology continue antiplatelets-aspirin and brillinta, follow-up with cardiology after discharge Dyslipidemia continue Lipitor 80mg at bedtime Diabetes-educated on blood glucose control, INSTRUCTIONS: Physician Discharge Instructions: -Follow-up with PCP in 1 to 2 weeks -Please call Dr. Mejia at [phone] if any questions regarding hospital stay -Follow-up with cardiology in 1-2 weeks -Please call nursing station at [phone] if any nursing or medication questions -Return to the emergency room if symptoms worsen Diet: ADA, low sodium Activity: Fall precautions Diet: AHA Activity: Fall precautions Followup: Savage Leyva MD [ACTIVE - CAN ADMIT] - Time spent managing pt's care (in minutes): 55
[2024-04-14] MEDS: lisinopriL 10 MG TAB PO SCH (09:00)
[2024-04-14] MEDS: NICOTINE 21 MG/PAT TD SCH (09:00)
[2024-04-14] MEDS: LIDOCAINE 4% PATCH TOP SCH (09:00)
--- NOTE | 2024-04-14 14:16 | PN ---
Date of Progress Note: 04/14/2024 Subjective: Seen at bedside. Continues to have chest pain, status post coronary angiogram, has kurtis re left circumflex stenosis, status post successful PCI and he has significant RCA, needs re-evaluati on tomorrow. No nausea, vomiting, diarrhea. No abdominal pain. All other systems reviewed are nega tive. Objective: Vital Signs: Reviewed. Head and Neck: Pupils are equal, reactive to light. Intact eye movements. No JVD. No cervical lym phadenopathy. Neck is supple. Thyroid is not enlarged. Lungs: Clear to auscultation bilaterally. No rhonchi, wheezing, or crackles. No accessory muscle u se. Heart: Regular rate and rhythm. No extra sounds. Abdomen: Soft, nontender. Bowel sounds positive. No organomegaly. No masses or hernia. No rigidi ty or rebound. Extremities: No edema, clubbing, cyanosis. Intact pulses. Skin: No rashes. Neuro: Alert, awake, oriented x3. No acute focal deficits appreciated. Investigations: Labs were reviewed. Assessment/recommendations: 1.Unstable angina, culprit is OM1 branch, status post successful percutaneous coronary intervention. Still has residual coronary artery disease. Right coronary artery needs to be evaluated. Likely n eeds percutaneous coronary intervention. We will plan for resisting the coronaries tomorrow with the left heart catheterization, in the interim to continue Brilinta and aspirin and high-dose statin. 2.Dyslipidemia, on Lipitor 40 mg at bedtime. 3.Hypertension. Blood pressure is controlled. Continue current management. SR/MODL Voice ID: [id number] Report ID: [id number]
--- NOTE | 2024-04-14 17:22 | OP ---
Date of Procedure: 04/14/2024 Surgeon: DI TAYLOR Procedures Performed: 1.Selective coronary angiogram. 2.Left heart catheterization. 3.PCI of severe ostial OM1 stenosis, very large vessel, that is the culprit. I used 4.0 x 60 mm Syn ergy drug-eluting stent. Indication: Unstable angina. Access: Right radial artery 6-Mongolian closed with TR band. Complications: None. Bleeding: Less than 50 mL. Anesthesia: Total sedation time was 1 hour. Used fentanyl and Versed. Description Of Procedure: After risks, benefits, and alternatives were explained, patient agreed to procedure and signed informed consent. [facility] prepped and draped in the usual sterile fashion. Then, I accessed right radial artery using pediatric micropuncture kit, placed a 6-Mongolian Slender sheath and took a 5-Mongolian [place] 4.0 catheter into the aortic root, engaged the left main and right coronary artery, took standard views and the ca theter was pushed over the wire into the LV, measured the LVEDP. Pullback did not record any gradien t. Then I gave systemic heparin to assure ACT level above 250 throughout the procedure. Patient was already on Brilinta and aspirin, took EBU 4 guide, engaged the left main and then took a Runthrough wire into the left circumflex, sent it to the OM1 branch. I did a balloon angioplasty subsequently a nd placed the stent successfully. The patient tolerated the procedure very well. Wire was removed. Final angiogram was satisfactory and then I removed the guide and the sheath, placed TR band with go od hemostasis. I stopped the procedure because of the contrast fluid and we will plan to bring him b ack to re-evaluate the right coronary artery tomorrow. The patient was sent to recovery room in stab le condition. Findings: 1.Left main; large and normal. 2.LAD; widely patent, proximal to mid LAD stent. Rest of LAD is with luminal irregularities. The d iagonal branches are with luminal irregularities. 3.Left circumflex; very large vessel. OM1 branch is a 4.0 vessel with ostial 90% stenosis, status p ost successful PCI as above and has mid to distal 40% stenosis and the circ has a stent after the OM1 takeoff and it has 40% ISR. 4.RCA; it is large and dominant, has a proximal 60% stenosis, and it looked very hazy, could be unst able plaque. I will plan to evaluate this with IVUS and possible PCI tomorrow. Conclusion: 1.Severe OM1 branch stenosis which is the culprit, status post successful PCI. 2.Moderate to severe RCA stenosis. Will plan for reevaluation tomorrow morning with coronary angiog lois and FFR and IVUS. Plan: 1.Aspirin, Brilinta, and statin. 2.Reevaluate with coronary angiogram tomorrow. SR/MODL Voice ID: [id number] Report ID: [id number]
--- NOTE | 2024-04-15 08:09 | P.PN ---
Date of Service: 04/15/24 Subjective no current chest pain, pending repeated heart cath Review of Systems 10-point ROS is otherwise unremarkable Physical Examination - Vital Signs Reviewed - Physical Exam General: Alert oriented times 3, no acute distress Respiratory: Equal unlabored, clear Cardiovascular: Regular rate/rhythm, Gastrointestinal: Soft and benign, nontender Musculoskeletal: No deformity, Neurological: Normal gait, Normal speech, Assessment & Plan - Problems (Diagnosis) (1) Chest pain due to coronary artery disease Current Visit: Yes Status: Acute (2) DM2 (diabetes mellitus, type 2) Current Visit: Yes Status: Acute (3) HTN (hypertension) Current Visit: Yes Status: Acute (4) CAD (coronary artery disease) Current Visit: Yes Status: Acute - Plan 1. Serial troponins and EKG 2. Appreciate Cardiology consultation 3. Echocardiogram and stress test if cardiology is agreeable 4. Anti-platelet therapy, anti coagulation, beta-steve, statin, and O2 as needed 5. IV morphine for pain 6. Nitro p.r.n. Discharge Plan: Home Plan to discharge in: 24 Hours - Advance Directives Does patient have a Living Will: No Does patient have a Durable POA for Healthcare
--- NOTE | 2024-04-15 18:47 | PN ---
Date of Progress Note: 04/15/2024 Subjective: Seen by bedside. Doing well after the PCI yesterday. Review of Systems: No active chest pain at the present time. No nausea, vomiting, or diarrhea. No abdominal pain. No dysuria, polyuria, or urinary urgency. All other systems were reviewed, they were negative. Objective: Vital Signs: Reviewed. Head and Neck: Pupils are equal, reactive to light. Intact eye movements. No JVD. No cervical lym phadenopathy. Neck is supple. Thyroid is not enlarged. Lungs: Clear to auscultation bilaterally. No rhonchi, wheezing, or crackles. No accessory muscle u se. Heart: Regular rate and rhythm. No extra sounds. Abdomen: Soft, nontender. Bowel sounds positive. No organomegaly. No masses or hernia. No rigidi ty or rebound. Extremities: No edema, clubbing, or cyanosis. Intact pulses. Skin: No rash. No nodule. Neurologic: Alert, awake, oriented x3. No acute focal deficits appreciated. Investigations: Labs were reviewed. Assessment And Recommendations: 1.Unstable angina. The culprit was OM1 branch. Successful PCI was done. He still has RCA disease that likely needs evaluation, possible PCI, we were planning on doing it today. However, there was a malfunction in the equipments of the construction or leak gang laborer, could not do the procedure today. We will plan for d oing it tomorrow. At this moment, continue aspirin and Brilinta. 2.Dyslipidemia. Continue Lipitor 40 mg q.h.s. 3.Hypertension. Blood pressure is controlled. Continue current management. 4.Smoker. I had a long discussion with him, counseled against smoking. SR/MODL Voice ID: [id number] Report ID: [id number]
[2024-04-16 12:25] VITALS: TEMP 97.2
[2024-04-16] MEDS: NA CHLORIDE 0.9% 500 ML ONE (13:25)
[2024-04-16] MEDS ORDERED: LIDOCAINE 1% 20 ML MDV ONE (13:57)
[2024-04-16] MEDS ORDERED: HEPA 1000U/500MLS 2,000 UNIT/1,000 ML BAG IV ONE (13:57)
[2024-04-16] MEDS ORDERED: VERAPAMIL HCL 10 MG/4 ML VIAL IV ONE (14:01)
[2024-04-16] MEDS ORDERED: HEPARIN 5000 UNIT/ML 1 ML VIAL ONE (14:02)
[2024-04-16] MEDS ORDERED: ATROPINE SULF 1 MG/10 ML SYR IV ONE (14:02)
[2024-04-16] MEDS ORDERED: MIDAZOLAM HCL 2 MG/2 ML INJ ONE (14:02)
[2024-04-16] MEDS ORDERED: FENTANYL CITR 100 MCG/2 ML ONE (14:02)
[2024-04-16] MEDS ORDERED: TICAGRELOR 90 MG TABLET PO ONE (14:02)
[2024-04-16] MEDS ORDERED: HEPARIN 10,000 UNIT/10 ML VIAL IV ONE (14:03)
[2024-04-16] MEDS ORDERED: CLOPIDOGREL 75 MG TABLET ONE (14:03)
[2024-04-16] MEDS ORDERED: ASPIRIN 325 MG TAB ONE (14:03)
[2024-04-16] MEDS ORDERED: Phenylephrine HCl 10 MG/ML 1 ML VIAL ONE (14:14)
[2024-04-16] MEDS ORDERED: REGADENOSON 0.4 MG/5 ML SYR IV ONE (14:40)
[2024-04-16 16:36] VITALS: O2SAT 98
--- NOTE | 2024-04-16 18:03 | P.PN ---
Date of Service: 04/16/24 Subjective N.p.o., pending heart cath today with Dr. Leyva Family at bedside Review of Systems 10-point ROS is otherwise unremarkable Physical Examination - Vital Signs Reviewed - Physical Exam General: Alert oriented times 3, no acute distress Respiratory: Clear to auscultation Cardiovascular: Regular rate/rhythm, no edema Gastrointestinal: Positive bowel sounds Musculoskeletal: No deformity, normal strength, Neurological: Oriented x 3 Assessment & Plan - Problems (Diagnosis) (1) Chest pain due to coronary artery disease Current Visit: Yes Status: Acute (2) DM2 (diabetes mellitus, type 2) Current Visit: Yes Status: Acute (3) HTN (hypertension) Current Visit: Yes Status: Acute (4) CAD (coronary artery disease) Current Visit: Yes Status: Acute - Plan 1. Serial troponins and EKG 2. Appreciate Cardiology consultation 3. Echocardiogram and stress test if cardiology is agreeable 4. Anti-platelet therapy, anti coagulation, beta-steve, statin, and O2 as needed 5. IV morphine for pain 6. Nitro p.r.n. Discharge Plan: Home Plan to discharge in: 24 Hours - Advance Directives Does patient have a Living Will: No Does patient have a Durable POA for Healthcare
[2024-04-16 18:11] VITALS: BP 121/84
--- NOTE | 2024-04-16 19:38 | PN ---
Date of Progress Note: 04/16/2024 Subjective: Seen by bedside. His chest pain has resolved. No nausea, vomiting, diarrhea. No abdom inal pain. No dysuria, polyuria, or urinary urgency. Continues to smoke. All other systems reviewe d, they are negative. Objective: Vital Signs: Reviewed. Head and Neck: Pupils are equal, reactive to light. Intact eye movements. No JVD. No cervical lym phadenopathy. Neck is supple. Thyroid is not enlarged. Lungs: Clear to auscultation bilaterally. No rhonchi, wheezing, or crackles. No accessory muscle u se. Heart: Regular rate and rhythm. No extra sounds. Abdomen: Soft, nontender. Bowel sounds positive. No organomegaly. No masses or hernia. No rigidi ty or rebound. Extremities: No edema, clubbing, cyanosis. Intact pulses. Skin: No rash. No nodule. Neuro: Alert, awake, oriented x3. No acute focal deficits appreciated. Investigations: His glucose was 155 today. Rest of labs were reviewed. Assessment/recommendation: 1.Unstable angina, status post successful PCI of the OM, likely is the culprit, today did coronary a ngiogram and looked at the RCA and did FFR, it was negative. At this point, the patient can be relea sed on aspirin, Brilinta, and Lipitor 40 mg q.h.s. 2.Dyslipidemia. Start Lipitor 40 mg q.h.s. to make sure discharge home on it. 3.Hypertension, pulse controlled. 4.Smoker. I had a long discussion with him today to quit smoking. SR/MODL Voice ID: [id number] Report ID: [id number]
[2024-04-16] MEDS ORDERED: ATORVASTATIN 40 MG TAB PO SCH (21:00)
--- NOTE | 2024-04-17 01:38 | OP ---
Date of Procedure: 04/16/2024 Surgeon: DI TAYLOR Procedures Performed: 1.Selective coronary angiogram. 2.FFR of proximal RCA was negative at 0.93. Indication: Unstable angina. Access: Right arterial artery 6-Iranian, closed with TR band. Complications: None. Bleeding: Less than 50 mL. Anesthesia: Total sedation time was 40 minutes. Description Of Procedure: After risks, benefits, and alternatives were explained, the patient agreed to procedure and signed informed consent. The patient was brought into cardiac catheterization [facility], prepped and draped in usual sterile fashion. Then, I accessed right radial artery using [employer] atric micropuncture kit, placed a 6-Iranian Slender sheath, took 5-Iranian JL3.5 catheter over J-wire i nto the aortic root, engaged the left main, took standard views, and then exchanged for 6-Iranian JR4 guide, engaged the RCA, gave systemic heparin to assure ACT level above 250, and took an FFR wire int o the aortic root. Pressures were equalized and then engaged the RCA and sent the wire into the dist al RCA, performed FFR using Lexiscan. FFR was 0.93. Wire was pulled back and there was no drift. F inal angiogram was satisfactory and I removed the guide and the sheath, placed TR band with good hemo stasis. Findings: 1.Left main is normal. 2.LAD, widely patent proximal to mid LAD stent and the stability is normal. 3.Left circumflex, widely patent left circ to OM stent and patent left circ stent. After takeoff of the OM, there is about 40% stenosis jailed from the stent that was placed 2 days ago. 4.RCA; proximal 60% hazy slightly with FFR of 0.93. Conclusion: Moderate RCA disease and widely patent LAD and left circumflex stent. Plan: Aspirin, Brilinta, high-dose statin. The patient can be released today. SR/MODL Voice ID: [id number] Report ID: [id number]
== END 2024-04-16 18:23 | disposition home or self-care (01) | DRG 322 ==
LOC: 2ND 09:59 → OBSVTOIN 04-15 09:49
PROVIDERS: ADMIT Hospitalist; ATTEND Hospitalist
PROC: 027034Z Dilation of Coronary Artery, One Artery with Drug-eluting Intraluminal Device, Percutaneous Approach (ICD-10-PCS; principal; 2024-04-14)
PROC: 4A023N7 Measurement of Cardiac Sampling and Pressure, Left Heart, Percutaneous Approach (ICD-10-PCS; 2024-04-14)
PROC: B2111ZZ Fluoroscopy of Multiple Coronary Arteries using Low Osmolar Contrast (ICD-10-PCS; 2024-04-14)
PROC: B2111ZZ Fluoroscopy of Multiple Coronary Arteries using Low Osmolar Contrast (ICD-10-PCS; 2024-04-16)
DX: I25.110 Atherosclerotic heart disease of native coronary artery with unstable angina pectoris (principal); I10 Essential (primary) hypertension; E11.9 Type 2 diabetes mellitus without complications; I07.1 Rheumatic tricuspid insufficiency; E78.5 Hyperlipidemia, unspecified; F17.210 Nicotine dependence, cigarettes, uncomplicated; Z88.0 Allergy status to penicillin; Z95.5 Presence of coronary angioplasty implant and graft; Z79.82 Long term (current) use of aspirin; Z79.899 Other long term (current) drug therapy
CPT/HCPCS: 36415; 76937; 80048; 80061; 82947; 84484; 85025; 85347; 85610; 85730; 92928; 93306; 93454; 93458; 93571; 99152; 99153; C1725; C1769; C1893; G0378; G0379; J0461; J1644; J2001; J2250; J2310; J2371; J2785; J3010; J7040; Q9966; Q9967

== ENCOUNTER 2024-05-07 09:55 | Observation (INO) | payer OTHER ==
--- OUTSIDE RECORDS SUMMARY | 2024-05-07 09:59 | XMS REPORT | Clinical Summary ---
Author Name Unknown Organization [facility] Address [address] [place] [address] Care Team Providers Care Male Impersonator Name Role Phone Doe Tse MD Unavailable [phone] Sanchez Blanchard MD Primary Care Provider Zack Arcos MD Unavailable [phone] Nakul Angeles MD Unavailable + Peterson [...] mg by mouth daily. Active HYDROcodone-acetamino phen ([place]) 5 mg-325 mg per tabletIndications:Met astatic malignant [...] 06/2020. He will be evaluated in the [facility], who may recommend a Cardiology Consult as well. They will advise on best practice in terms of withholding his anticoagulation in terms of timing with surgery. Metastatic malignant melanoma 01/06/2021 Cancer Staging:Pathologic stage from 01/26/2021:Stage IIIA(pT2a, pN1a, cM0) - Signed by Nicole Zelaya PA on 02/20/2021 Overview: Added automatically from request for surgery [id number] Last Assessment & Plan: Mr. 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 We will plan to see him back 4 months with repeat US of his right axilla. Resolved Problems Problem Noted Date Diagnosed Date Resolved Date Encounter for other preprocedural examination 09/13/20 21 10/07/2023 Encounters Date Type Department Care Team Description 04/28/2024 2:30 PM CDT Telemedicine MD [facility] [address] [place] [address] Peterson Rhodes MD Abnormal radiologic finding on diagnostic imaging of left kidney 12/23/2023 11:30 AM [employer] [facility] [address] [facility], 9th [place] [address] Sanchez Blanchard MD Metastatic malignant melanoma (Primary Dx) 12/23/2023 9:30 AM [employer] Ancillary Procedure General Ultrasound [address] [facility], 5th [place] [address] Sanchez Blanchard MD Metastatic malignant melanoma 12/23/2023 Travel 12/09/2023 3:00 PM [employer] Telemedicine MD [facility] [address] [place] [address] Peterson Rhodes MD Wolf, Elizabeth A., PA Metastatic malignant melanoma; Abnormal radiologic finding on diagnostic imaging of left kidney 12/04/2023 Orders Only MD [facility] [address] [place] [address] Beverley Crews PA 10/07/2023 9:00 AM [employer] Telemedicine [facility] [address] [facility], 9th [place] [phone] Nakul Angeles MD Encounter for follow-up examination after completed treatment for malignant neoplasm (Primary Dx); Metastatic malignant melanoma; Secondary and unspecified malignant neoplasm of axilla and upper limb lymph nodes; Kidney lesion; Malignant melanoma of right upper limb including shoulder; Screening for thyroid disorder 10/04/2023 11:15 AM [employer] Ancillary Procedure [facility] Outpatient Center [address] [place] [address] Vanessa Padilla PA Metastatic malignant melanoma; Secondary and unspecified malignant neoplasm of axilla and upper limb lymph nodes; 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; Malignant melanoma of right upper limb including shoulder 10/04/2023 8:25 AM [employer] Ancillary Procedure CT Imaging [address] [facility], 7th [place] [address] Vanessa Padilla PA Metastatic malignant melanoma; Secondary and unspecified malignant neoplasm of axilla and upper limb lymph nodes; 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, 9th [place] [address] Elva Tay, GERALDO Metastatic malignant melanoma (Primary Dx) 05/27/2023 11:30 AM CDT [facility]cology [facility] [facility], 9th [place] [address] Sanchez Blanchard MD Metastatic malignant melanoma 05/27/2023 9:00 AM CDT Ancillary Procedure General Ultrasound [address] [facility], 5th [place] [address] Elva Tay, NENAC Metastatic malignant melanoma 05/27/2023 Travel 05/24/2023 Orders Only MD [facility] [place] - Urology [address] [place] [address] Beverley Crews PA Metastatic malignant melanoma (Primary Dx); Abnormal radiologic finding on diagnostic imaging of left kidney 05/23/2023 2:00 PM CDT Telemedicine MD [facility] [place] - Urology [address] [place] [address] Peterson Rhodes MD Metastatic malignant melanoma (Primary Dx); Abnormal radiologic finding on diagnostic imaging of left kidney 05/13/2023 11:45 AM CDT Telemedicine [facility] [address] [facility], 9th [place] [address] Nakul Angeles MD Encounter for other preprocedural examination (Primary Dx); Metastatic malignant melanoma; Secondary and unspecified malignant neoplasm of axilla and upper limb lymph nodes; 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; Malignant melanoma of right upper limb including shoulder; Screening for thyroid disorder; Kidney lesion 05/13/2023 Orders Only Neuroradiology [address] [place] [address] Brian Lopez PA 05/10/2023 10:05 AM CDT - 05/10/2023 11:59 PM CDT Hospital Encounter Main CT IMAGING [address] [place] [address], 3rd [place] [address] Maida Melton PA Metastatic malignant melanoma; Secondary and unspecified malignant neoplasm of axilla and upper limb lymph nodes; Malignant melanoma of right upper limb including shoulder Discharge Disposition: Home 05/10/2023 9:55 AM CDT - 05/10/2023 10:04 AM CDT Hospital Encounter [facility] [address] [place] [address], [place] [address] Maida Melton PA Metastatic malignant melanoma Discharge Disposition: Home after 05/08/2023 Immunizations Name Administration Dates Next Due Moderna SARS-CoV-2 Vaccination 11/30/2020,2020 Surgical History Surgery Date Site/Laterality Comments BACK SURGERY 10/21/2009 - 10/20/2010 HERNIA REPAIR 10/21/2007 - 10/20/2008 CORONARY ANGIOPLASTY WITH STENT PLACEMENT 10/07/2017 [employer] CHIN int he mid LAD KNEE SURGERY Right x 5 EXCISION WIDE LOCAL TRUNK 12/01/2015 melanoma in situ of back CORONARY ANGIOPLASTY WITH STENT PLACEMENT date unknown -?09/2017 but per cardiac cath dated : "LCx Patent stent and moderate disease of the distal OM1 " CORONARY ANGIOPLASTY WITH STENT PLACEMENT 07/05/2020 per shotblaster's note, pt had "stent of proximal LAD". type of stent not noted UT EXCISION MAL LESION TRUNK/ARM/LEG 0.6-1.0 CM 01/26/2021 Right Procedure: EXCISION OF MALIGNANT LESION OF ARM(S)- right posterior upper arm; Surgeon: Sanchez Blanchard MD; Location: MAIN OR; Service: SURG ONC - MELANOMA UT INJ RADIOACTIVE TRACER FOR ID OF SENTINEL NODE 01/26/2021 Right Procedure: ISOTOPE INJECTION FOR SENTINEL NODE BIOPSY; Surgeon: Sanchez Blanchard MD; Location: MAIN OR; Service: SURG ONC - MELANOMA UT BX/EXC LYMPH NODE OPEN SUPERFICIAL 01/26/2021 Right [...] [facility] Coronary arteriosclerosis 2017 [place] den ies [place]. per pt, he has 6 stents in placed. per pt 2 stents were placed in 09/2017 and then reportedly 2 wks later 2 addtl stents were placed. pt reports that he had "chest discomfort" and reportedly had 2 addtl stents in in 06/2020 Hypercholesterolemia Tobacco dependence caused by cigarettes Body mass index (BMI) 36.0-36.9, adult 1 jail use of antiplatelet wilson s been on [...] Comments Blood Pressure 119/76 12/23/2023 11:27 AM [employer] Pulse 102 12/23/2023 11:27 AM [employer] Temperature 36.8 C (98.2 F) 12/23/2023 1 1:27 AM [employer] Respiratory Rate 18 12/23/2023 11:2 7 AM [employer] Oxygen Saturation - - Inhaled Oxygen Concentration - - Weight 118.5 kg (261 lb 3.9 oz) 023 11:38 AM [employer] Height - - Body Mass Index 36.45 01/25/2023 10:03 AM CDT Plan of Treatment Upcoming Encounters Date Type Department Care Team (Late st Contact Info) Description 06/15/2024 10:00 AM CDT Lab MD [facility] [place] - [facility] [address] [address] Vanessa Padilla PA [facility] [place] [address] [email or web address] 06/15/2024 11:40 AM CDT Ancillary Procedure MD [facility] [place] [address] [address] Beverley Crews PA [facility]5 [place], [place] [phone] [email or web address] 06/16/2024 8:30 AM CDT Follow-Up MD [facility] [place] - Urology [address] [place] [address] Peterson Rhodes MD [facility] [place], [place] [phone] 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 Malignant melanoma of right upper limb including shoulder .CBC Routine 10/04/2023 11:09 AM [employer] Metastatic malignant melanoma URIC ACID Routine 10/04/2023 11:09 AM [employer] Metastatic malignant melanoma THYROID STIMULATING HORMONE Routine 10/04/2023 11:09 AM [employer] Metastatic malignant melanoma Screening for thyroid disorder MAGNESIUM LEVEL Routine 10/04/2023 11:09 AM [employer] Metastatic malignant melanoma LACTATE DEHYDROGENASE Routine 10/04/2023 11:09 AM [employer] Metastatic malignant melanoma FREE THYROXINE Routine 10/04/2023 11:09 AM [employer] Metastatic malignant melanoma Screening for thyroid disorder COMPREHENSIVE METABOLIC PANEL Routine 10/04/2023 11:09 AM [employer] Metastatic malignant melanoma COMPLETE BLOOD COUNT W/ DIFFERENTIAL Routine 10/04/2023 11:09 AM [employer] Metastatic malignant melanoma CT CHEST ABDOMEN PELVIS W CONTRAST Routine 10/04/2023 10:38 AM [employer] Metastatic malignant melanoma 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 Anatomical Region Laterality Modality Arm, Extremity Right Ultrasound 12/23/2023 9:48 AM [employer] Impressions 12/23/2023 9:52 AM [employer] Stable postsurgical changes. No adenopathy, collection or mass seen in the right axilla Narrative 12/23/2023 9:52 AM [employer] FULL RESULT: Examination: US UPPER EXTREMITY LIMITED [...] with and without Contrast (10/04/2023 12:49 PM [employer]) Anatomical Region Laterality Modality Head Magnetic Resonan ce 10/04/2023 10:5 5 PM [employer] Impressions 10/04/2023 11:02 PM [employer] 1. Stable findings: No evidence for intracranial metastases or acute intracranial pathology 2. No worrisome osseous lesions. Narrative 10/04/2023 11:02 PM [employer] FULL RESULT: Examination: MRI BRAIN W WO [...] 2. No worrisome osseous lesions. Vanessa LUIS Tyshawn MRI ORDERABLES * (ABNORMAL) .CBC (10/04/2023 11:09 AM [employer]) Only the most recent of2 resultswithin the time period is included. White Blood Cell 10.4 4.1 - 10.5 K/uL 10/04/2023 11:26 AM [facility] Red Blood Cell 4.98 4.30 - 6.04 M/uL 10/04/2023 11:26 AM [facility] Hemoglobin 16.6 13.3 - 17.4 g/dL 10/04/2023 11:26 AM [facility] Hematocrit 48.2 39.5 - 51.8 % 10/04/2023 11:26 AM [facility] Mean Cell Volume 97 82 - 99 fL 10/04/2023 11:26 AM [facility] Mean Cell Hemoglobin 33.3(H) 26.6 - 33.2 pg 10/04/2023 11:26 AM [facility] Mean Cell Hemoglobin Concentration 34.4 31.1 - 35.2 g/dL 10/04/2023 11:26 AM [facility] RDW-SD 46.4 37.5 - 49.7 fL 10/04/2023 11:26 AM [facility] Red Cell Diameter Width 13.0 11.6 - 15.5 % 10/04/2023 11:26 AM [facility] Platelet 257 160 - 397 K/uL 10/04/2023 11:26 AM [facility] Mean Platelet Volume 9.4 9.1 - 12.6 fL 10/04/2023 11:26 AM [facility] INRBC 0.0 0.0 - 0.1 /100 WBC 10/04/2023 11:26 AM [facility] Comment: The INRBC (instrument NRBC) value reflects the enumeration of nucleated red blood cells contained in a 200uL sample of whole blood analyzed by the instrument. This value may differ from the NRBC value reported in a manual differential, which is based on a 100 cell differential. Neutrophil % 67.0 43.2 - 72.7 % 10/04/2023 11:26 AM [facility] Lymphocyte % 20.8 16.8 - 46.2 % 10/04/2023 11:26 AM [facility] Monocyte % 8.4 5.1 - 12.5 % 10/04/2023 11:26 AM [facility] Eosinophil % 2.2 0.4 - 6.3 % 10/04/2023 11:26 AM [facility] Basophil % 0.6 0.2 - 1.4 % 10/04/2023 11:26 AM [facility] IGRE % 1.0 0.1 - 1.5 % 10/04/2023 11:26 AM [facility] Comment:The IGRE% includes M etamyelocytes, Myelocytes and Promyelocytes. Neutrophil Abs 6.94 1.95 - 7.25 K/uL 10/04/2023 11:26 AM [facility] Lymphocyte Abs 2.16 1.01 - 3.24 K/uL 10/04/2023 11:26 AM [facility] Monocyte Abs 0.87(H) 0.24 - 0.85 K/uL 10/04/2023 11:26 AM [facility] Eosinophil Abs 0.23 0.02 - 0.50 K/uL 10/04/2023 11:26 AM [facility] Basophil Abs 0.06 0.02 - 0.09 K/uL 10/04/2023 11:26 AM [facility] IG Abs 0.10 0.01 - 0.12 K/uL 10/04/2023 11:26 AM [facility] Blood Venipuncture / Unknown 10/04/2023 11:09 AM [facility] 10/04/2023 11:10 AM [facility] Vanessa LUIS LAB BLOOD ORDERABLE S [facility] [address] [facility] [place] [address] * (ABNORMAL) Comprehensive Metabolic Panel (10/04/2023 11:09 AM [facility]) Bilirubin Total 0.3 <=1.2 mg/dL 10/04/2023 11:57 AM [facility] Comment: Indocyanine Green (ICG) may cause falsely elevated bilirubin results. Total and direct bilirubin must not be measured from samples containing indocyanine green. False elevation of total bilirubin can be seen in patients with IgG concentrations above 28 g/L. This result was previously suppressed from the chart. Bilirubin Direct <0.2 <=0.3 mg/dL 10/04/2023 11:57 AM [facility] Comment: Indocyanine Green (ICG) may cause falsely elevated bilirubin results. Total and direct bilirubin must not be measured from samples containing indocyanine green. This result was previously suppressed from the chart. Bilirubin Indirect 2022 11:57 AM [facility] Comment:Unable to calculate Indirect Bilirubin result due to some parameters are outside reportable range eGFR 111 >=60 mL/min/1. 73 sq. m 10/04/2023 11:57 AM [facility] Comment: The eGFRcr is calculated with the [...] 6.4 - 8.3 gm/dL 10/04/2023 11:57 AM [facility] Comment:This result was prev iously suppressed from the chart. Calcium Level Total 9.5 8.2 - 10.2 mg/dL 10/04/2023 11:57 AM [facility] Comment:This result was prev iously suppressed from the chart. Alkaline Phosphatase 98 40 - 129 U/L 10/04/2023 11:57 AM [facility] Comment:This result was prev iously suppressed from the chart. Albumin Level 4.2 3.5 - 5.2 gm/dL 10/04/2023 11:57 AM [facility] Comment:This result was prev iously suppressed from the chart. AST 20 <=40 U/L 10/04/2023 11:57 AM [facility] Comment:This result was prev iously suppressed from the chart. ALT 27 <=41 U/L 10/04/2023 11:57 AM [facility] Comment:This result was prev iously suppressed from the chart. Sodium Level 133(L) 136 - 145 mmol/L 10/04/2023 11:57 AM [facility] Comment:This result was prev iously suppressed from the chart. Potassium Level 4.3 3.4 - 4.5 mmol/L 10/04/2023 11:57 AM [facility] Comment:This result was prev iously suppressed from the chart. Chloride 98 98 - 107 mmol/L 10/04/2023 11:57 AM [facility] Comment:This result was prev iously suppressed from the chart. CO2 25 22 - 29 mmol/L 10/04/2023 11:57 AM [facility] Comment:This result was prev iously suppressed from the chart. Anion Gap 10 4 - 14 mmol/L 10/04/2023 11:57 AM [facility] Comment:This result was prev iously suppressed from the chart. Creatinine 0.71 0.67 - 1.17 mg/dL 10/04/2023 11:57 AM [facility] Comment:This result was prev iously suppressed from the chart. BUN 11 6 - 23 mg/dL 10/04/2023 11:57 AM [facility] Comment:This result was prev iously suppressed from the chart. Glucose Level 132(H) 70 - 99 mg/dL 10/04/2023 11:57 AM [facility] Comment: Effective 05/16/16, the glucose reference intervals have been updated based on [employer] guidelines (Standards of Medical Care [...] Blood Venipuncture / Unknown 10/04/2023 11:09 AM [employer] 10/04/2023 11:10 AM [employer] Vanessa Padilla PA LAB BLOOD ORDERABLE S [address] [place] [address] * Uric Acid (10/04/2023 11:09 AM [employer]) Uric Acid 4.4 3.4 - 7.0 mg/dL 10/04/2023 11:57 AM [employer] [facility] Blood Venipuncture / Unknown 10/04/2023 11:09 AM [employer] 10/04/2023 11:10 AM [employer] Vanessa Padilla PA LAB BLOOD ORDERABLE S Performing Organization Address [facility] Co de Phone Number [address] [place] [address] * TSH (10/04/2023 11:09 AM [employer]) Thyroid Stimulating Hormone 0.99 0.27 - 4.20 mcunit/mL 10/04/2023 12:02 PM [employer] [facility] Blood Venipuncture / Unknown 10/04/2023 11:09 AM [employer] 10/04/2023 11:10 AM [employer] Vanessa Padilla PA LAB BLOOD ORDERABLE S Performing Organization Address City/[facility] Co de Phone Number [address] [place] [address] * Free T4 (10/04/2023 11:09 AM [employer]) T4 (Thyroxine) Free 1.23 0.93 - 1.70 ng/dL 10/04/2023 12:02 PM [employer] [facility] Blood Venipuncture / Unknown 10/04/2023 11:09 AM [employer] 10/04/2023 11:10 AM [employer] Vanessa Padilla PA LAB BLOOD ORDERABLE S [address] [place] [address] * Magnesium Level (10/04/2023 11:09 AM [employer]) Magnesium Level 2.3 1.6 - 2.6 mg/dL 10/04/2023 11:57 AM [employer] [facility] Blood Venipuncture / Unknown 10/04/2023 11:09 AM [employer] 10/04/2023 11:10 AM [employer] Vanessa Padilla PA LAB BLOOD ORDERABLE S Performing Organization Address [facility] Co de Phone Number [address] [place] [address] * LDH (10/04/2023 11:09 AM [employer]) Only the most recent of2 resultswithin the time period is included. LDH 147 135 - 225 U/L 10/04/2023 11:57 AM [employer] [facility] Blood Venipuncture / Unknown 10/04/2023 11:09 AM [employer] 10/04/2023 11:10 AM [employer] Narrative [facility] - 10/04/2023 11:57 AM [employer] Results greater than 1651 U/L may not be reliable due to matrix effect with extended dilution as it exceeds the customer relations specialist's recommended limit. Caution should be exercised when interpreting such values and done in conjunction with clinical context. Vanessa Padilla PA LAB BLOOD ORDERABLE S Performing Organization Address City/[facility] Co de Phone Number [address] [place] [address] * CT Chest Abdomen Pelvis with Contrast (10/04/2023 10:38 AM [employer]) Only the most recent of2 resultswithin the time period is included. Anatomical Region Laterality Modality Abdomen, Pelvis, Chest Computed Tomography 10/04/2023 1:39 PM [employer] Impressions 10/05/2023 7:04 PM [employer] 1. Stable complex left renal cyst, larger than on 01/11/2021, possibly a renal cell carcinoma, to be followed/clinically correlated. 2. No definite CT evidence of metastatic disease. No change. ACTIONABLE ITEMS/RECOMMENDATIONS: See Impression. Narrative 10/05/2023 7:04 PM [employer] FULL RESULT: Examination: CT CHEST ABDOMEN PELVIS [...] change. ACTIONABLE ITEMS/RECOMMENDATIONS: See Impression. Vanessa LUIS [facility] [place] ORDER[place]LES * POC Creatinine (10/04/2023 10:08 AM [employer]) POC Creatinine 0.6 0.6 - 1.3 mg/dL 10/04/2023 10:10 AM [employer] [facility] Comment:Medications, especia lly hydroxyurea or supplements, such as ascorbate, can interfere with test results causing a falsely and significantly higher result than expected. If a problem is suspected with a patient's result, a sample should be sent to the laboratory for confirmatory testing. POC eGFR 117 >=60 mL/min/1.7 3 sq. m 10/04/2023 10:10 AM [facility] Comment: The eGFRcr is calculated with [...] for CKD. Blood 10/04/2023 10:0 8 AM [employer] 10/04/2023 10:10 AM [employer] Narrative [facility] - 10/04/2023 10:10 AM [employer] Method description: The i-STAT is an analyzer [...] electrochemical assay. Vanessa LUIS POCT ORDERABLES - Juliet NICOLE Performing Organization Address [facility] de Phone Number [facility] Unless otherwise noted, all lab tests performed by: Division of Pathology and Laboratory Medicine [address] [place] [address] * .Serum Creatinine (05/10/2023 10:02 AM CDT) Pathologist [facility] Creatinine 0.71 0.67 - 1.17 mg/dL [facility] Blood 05/10/2023 10:0 2 AM CDT 05/10/2023 10:34 AM CDT Maida LUIS LAB BLOOD ORDERABLES Performing Organization Address [facility] de Phone Number [facility] Unless otherwise noted, all lab tests performed by: Division of Pathology and Laboratory Medicine [address] [place] [id number] * Glomerular Filtration Rate (05/10/2023 10:02 AM CDT) eGFR 111 >=60 mL/min/1.7 3 sq. m [facility] Comment: The eGFRcr is calculated with the [...] AM CDT Maida LUIS LAB BLOOD ORDERABLES [facility] Unless otherwise noted, all lab tests performed by: Division of Pathology and Laboratory Medicine [address] [place] [id number] * Fractionated Bilirubin (05/10/2023 10:02 AM CDT) Bili Total 0.3 <=1.2 mg/dL [facility] Comment: Indocyanine Green (ICG) may cause falsely elevated bilirubin results. Total and direct bilirubin must not be measured from samples containing indocyanine green. False elevation of total bilirubin can be seen in patients with IgG concentrations above 28 g/L. Bili Direct <0.2 <=0.3 mg/dL [facility] Comment:Indocyanine Green (I CG) may cause falsely elevated bilirubin results. Total and direct bilirubin must not be measured from samples containing indocyanine green. Bili Indirect See Note 0.0 - 0.9 mg/dL [facility] Comment:Unable to calculate Indirect Bilirubin result due to some parameters are outside reportable range Blood 05/10/2023 10:0 2 AM CDT 05/10/2023 10:34 AM CDT Maida LUIS LAB BLOOD ORDERABLES [facility] Unless otherwise noted, all lab tests performed by: Division of Pathology and Laboratory Medicine [address] [place] [address] [phone] * (ABNORMAL) Differential (05/10/2023 10:02 AM CDT) Neutrophil % 64.0 43.2 - 72.7 % [facility] Lymphocyte % 23.1 16.8 - 46.2 % [facility] Monocyte % 8.5 5.1 - 12.5 % [facility] Eosinophil % 2.4 0.4 - 6.3 % [facility] Basophil % 1.1 0.2 - 1.4 % [facility] IGRE % 0.9 0.1 - 1.5 % [facility] Comment:IGRE % count include s Metamyelocytes, Myelocytes, and Promyelocytes. Neutrophil Abs 6.51 1.95 - 7.25 K/uL [facility] Lymphocyte Abs 2.34 1.01 - 3.24 K/uL [facility] Monocyte Abs 0.86(H) 0.24 - 0.85 K/uL [facility] Eosinophil Abs 0.24 0.02 - 0.50 K/uL [facility] Basophil Abs 0.11(H) 0.02 - 0.09 K/uL [facility] IG Abs 0.09 0.01 - 0.12 K/uL [facility] Blood 05/10/2023 10:0 2 AM CDT 05/10/2023 10:28 AM CDT Maida Razia LUIS LAB BLOOD ORDERABLES [facility] Unless otherwise noted, all lab tests performed by: Division of Pathology and Laboratory Medicine [address] [place] [address] [phone] * BUN (05/10/2023 10:02 AM CDT) BUN 12 6 - 23 mg/dL [facility] Blood 05/10/2023 10:0 2 AM CDT 05/10/2023 10:34 AM CDT Maida LUIS LAB BLOOD ORDERABLES Performing Organization Address [facility] de Phone Number [facility] Unless otherwise noted, all lab tests performed by: Division of Pathology and Laboratory Medicine [address] [place] [address] [phone] * ALT (05/10/2023 10:02 AM CDT) ALT 31 <=41 U/L [facility] Blood 05/10/2023 10:0 2 AM CDT 05/10/2023 10:34 AM CDT Maida LUIS LAB BLOOD ORDERABLES Performing Organization Address [facility] Phone Number [facility] Unless otherwise noted, all lab tests performed by: Division of Pathology and Laboratory Medicine [address] [place] [address] [phone] * Aspartate Aminotransferase (05/10/2023 10:02 AM CDT) AST 26 <=40 U/L [facility] Blood 05/10/2023 10:0 2 AM CDT 05/10/2023 10:34 AM CDT Maida LUIS LAB BLOOD ORDERABLES Performing Organization Address [facility] Phone Number [facility] Unless otherwise noted, all lab tests performed by: Division of Pathology and Laboratory Medicine [address] [place] [address] [phone] * Total Protein (05/10/2023 10:02 AM CDT) Total Protein 7.6 6.4 - 8.3 g/dL [facility] Blood 05/10/2023 10:0 2 AM CDT 05/10/2023 10:34 AM CDT Maida LUIS LAB BLOOD ORDERABLES Performing Organization Address City/[facility] de Phone Number [facility] Unless otherwise noted, all lab tests performed by: Division of Pathology and Laboratory Medicine [address] [place] [address] [phone] * Alkaline Phosphatase (05/10/2023 10:02 AM CDT) Alk Phos 94 40 - 129 U/L [facility] Blood 05/10/2023 10:0 2 AM CDT 05/10/2023 10:34 AM CDT Maida LUIS LAB BLOOD ORDERABLES Performing Organization Address [facility] Co de Phone Number [facility] Unless otherwise noted, all lab tests performed by: Division of Pathology and Laboratory Medicine [address] [place] [address] [phone] * (ABNORMAL) Glucose Level (05/10/2023 10:02 AM CDT) Glucose Level 133(H) 70 - 99 mg/dL [facility] Comment: Effective 05/16/16, the glucose reference intervals have been updated based on [place] [employer] guidelines (Standards of Medical Care [...] LUIS LAB BLOOD ORDERABLES Performing Organization Address City/[facility] Co de Phone Number [facility] Unless otherwise noted, all lab tests performed by: Division of Pathology and Laboratory Medicine [address] [place] [address] [phone] * Calcium Level (05/10/2023 10:02 AM CDT) Calcium Lvl 9.5 8.4 - 10.2 mg/dL [facility] Blood 05/10/2023 10:0 2 AM CDT 05/10/2023 10:34 AM CDT Maida LUIS LAB BLOOD ORDERABLES Performing Organization Address [facility] Co de Phone Number [facility] Unless otherwise noted, all lab tests performed by: Division of Pathology and Laboratory Medicine [address] [place] [address] [phone] * Albumin Level (05/10/2023 10:02 AM CDT) Albumin Lvl 4.2 3.5 - 5.2 gm/dL [facility] Blood 05/10/2023 10:0 2 AM CDT 05/10/2023 10:34 AM CDT Maida LUIS LAB BLOOD ORDERABLES Performing Organization Address [facility] Phone Number [facility] Unless otherwise noted, all lab tests performed by: Division of Pathology and Laboratory Medicine [address] [place] [address] [phone] * (ABNORMAL) Electrolyte Panel (05/10/2023 10:02 AM CDT) Sodium Lvl 134(L) 136 - 145 mEq/L [facility] Potassium Lvl 4.6 3.5 - 5.1 mEq/L [facility] Chloride 99 98 - 107 mEq/L [facility] CO2 28 22 - 29 mEq/L [facility] Anion Gap 7 4 - 14 mEq/L [facility] Blood 05/10/2023 10:0 2 AM CDT 05/10/2023 10:34 AM CDT Maida LUIS LAB BLOOD ORDERABLES Performing Organization Address [facility] Co de Phone Number [facility] Unless otherwise noted, all lab tests performed by: Division of Pathology and Laboratory Medicine [address] [place] [address] [phone] after 05/08/2023 Care Teams Male Impersonator Relationship Specialty Start Date End Date Doe Tse MD [address] [place] [phone] PCP - External Referring Dermatology 12/28/20 Sanchez Blanchard MD [address] [place] [address] [phone] [email or web address] PCP - General Melanoma Surgery 12/28/20 Zack Arcos MD [address] [place] [address] [phone] m Family Practice 02/22/21 Nakul Angeles MD [address] [place] [address] [phone] [email or web address] Consulting Physician Hematology and Oncology 02/20/21 Peterson Rhodes MD [address] [place] [address] [phone] [email or web address] Consulting Physician Urology 01/25/23 Kelvin Delong MD [address] [place] [address] [email or web address] Consulting Physician Internal Medicine 01/09/21
[2024-05-07 10:31] LABS: Absolute Basophils 0.1 K/uL (0-0.5); Absolute Eosinophils 0.1 K/uL (0-0.5); Absolute Lymphocytes (CBC) 1.2 K/uL (0.7-4.9); Absolute Neutrophil 8.3 K/uL (1.8-8.0); Basophils % 0.6 % (0-1.3); Eosinophils % 0.9 % (0-4.4); Hematocrit 46.4 % (39.6-49.0); Hemoglobin 15.7 g/dL (13.6-17.9); Lymphocytes % 11.5 % (15.3-44.8); MCH 33.2 pg (27.0-35.0); MCHC 33.8 g/dL (32.0-36.0); MCV 98.4 fL (80-100); MPV 7.1 fL (7.6-11.3); Monocytes % 9.3 % (3.3-12.3); Neutrophils % 77.7 % (41.7-73.7); Platelets 329 thou/uL (152-406); RBC Red Blood Cell Count 4.72 M/uL (4.33-5.43); Red Cell Distribution Width 14.4 % (12.1-15.2)
[2024-05-07 10:43] LABS: Anion Gap 7.4 mEq/L (5.0-15.0); Potassium 4.4 mEq/L (3.5-5.1); Troponin High Sensitivity 4.3 pg/mL (<58.9)
--- NOTE | 2024-05-07 10:45 | ER ---
Nurse's Notes [facility] Name: Fantasma Cano Age: 54 yrs Sex: Male : 1970 Arrival Date: 05/07/2024 Time: 09:55 Bed 8 Private MD: Zack Arcos B Diagnosis: Chest pain, unspecified Presentation: 05/07 10:20 Chief complaint: Patient states: Had stents placed in about 3.5 weeks ago, started to al5 c/o CP for the past 3 days. Coronavirus screen: At this time, the client does not indicate any symptoms associated with coronavirus-19. Ebola Screen: No symptoms or risks identified at this time. Initial Sepsis Screen: Does the patient meet any 2 criteria? No. Patient's initial sepsis screen is negative. Does the patient have a suspected source of infection? No. Patient's initial sepsis screen is negative. Risk Assessment: Do you want to hurt yourself or someone else? Patient reports no desire to harm self or others. Onset of symptoms was May 04, 2024. Care prior to arrival: None. 10:20 Method Of Arrival: Ambulatory al5 10:20 Acuity: JOVAN 2 al5 Triage Assessment: 10:22 General: Appears in no apparent distress. comfortable, Behavior is calm, cooperative. al5 Pain: Complains of pain in mid-sternal area and chest Pain currently is 5 out of 10 on a pain scale. Quality of pain is described as dull, Pain began 2-3 days ago. Is continuous. EENT: No signs and/or symptoms were reported regarding the EENT system. Neuro: No deficits noted. Level of Consciousness is awake, alert, obeys commands, Oriented to person, place, time, situation, Gait is steady, Speech is normal, Facial symmetry appears normal. Cardiovascular: Reports chest pain, Capillary refill < 3 seconds Patient's skin is warm and dry. Rhythm is sinus rhythm. Respiratory: Airway is patent Trachea midline Respiratory effort is even, unlabored, Respiratory pattern is regular, symmetrical. GI: No signs and/or symptoms were reported involving the gastrointestinal system. Abdomen is round non-distended. : No signs and/or symptoms were reported regarding the genitourinary system. Derm: No signs and/or symptoms reported regarding the dermatologic system. Skin is intact, Skin is pink, warm \T\ dry. normal. Musculoskeletal: No signs and/or symptoms reported regarding the musculoskeletal system. Historical: - Allergies: 10:27 PENICILLINS; al5 - Home Meds: 10:11 ticagrelor oral [Active]; bo1 - PMHx: 10:08 Coronary atherosclerosis; bo1 10:27 Hypertensive disorder; Diabetes mellitus; al5 - PSHx: 10:27 stents; knee (R); melanoma removal to R arm; al5 - Immunization history:: Adult Immunizations up to date. - Infectious Disease History:: Denies. - Hospitalizations: : Recent stent placement - 2.5 weeks ago. - Social history:: Smoking status: Patient reports the use of cigarette tobacco products. Screenin:25 [facility] ED Fall Risk Assessment (Adult) History of falling in the last 3 months, al5 including since admission No falls in past 3 months (0 pts) Confusion or Disorientation No (0 pts) Intoxicated or Sedated No (0 pts) Impaired Gait No (0 pts) Mobility Assist Device Used No (0 pt) Altered Elimination No (0 pt) Score/Fall Risk Level 0 - 2 = Low Risk Oriented to surroundings, Maintained a safe environment, Hourly rounding (assess needs \T\ fall precautionary measures) done. Abuse screen: Denies threats or abuse. Denies injuries from another. Nutritional screening: No deficits noted. Tuberculosis screening: No symptoms or risk factors identified. Assessment: 10:25 General: see triage note. Pain: Complains of pain in mid-sternal area and chest Pain al5 does not radiate. 11:45 Reassessment: Patient appears in no apparent distress at this time. No changes from al5 previously documented assessment. Patient and/or family updated on plan of care and expected duration. Pain level reassessed. Patient is alert, oriented x 3, equal unlabored respirations, skin warm/dry/pink. General: Appears. Pain: Pain currently is 4 out of 10 on a pain scale. 12:44 General: Pt changed from hospital gown to regular clothes and states that he does not cm10 want to change back into hospital gown.. Vital Signs: 10:20 BP 149 / 87; Pulse 90; Resp 18; Temp 97.5; Pulse Ox 98% on R/A; Weight 113.4 kg; Height al5 5 ft. 11 in. ; Pain 5/10; 11:55 BP 121 / 73; Pulse 92; Resp 18; Pulse Ox 97% on R/A; al5 10:20 Body Mass Index 34.87 (113.40 kg, 180.34 cm) al5 10:20 Pain Scale: Adult al5 ED Course: 09:56 Patient arrived in ED. mr 09:57 Zack Arcos MD is Private Physician. mr 10:00 Logan Lim MD is Attending Physician. bo1 10:20 Mignon Ibanez, TU is Primary Nurse. al5 10:22 Triage completed. al5 10:25 Patient has correct armband on for positive identification. Placed in gown. Bed in low al5 position. Call light in reach. Side rails up X 1. Provided Education on: admission to cardiology. Client placed on continuous cardiac and pulse oximetry monitoring. NIBP monitoring applied. nuclear monitoring technician on. 10:26 No provider procedures requiring assistance completed. Initial lab(s) drawn, by nc, al5 sent to lab. Inserted saline lock: 20 gauge in left antecubital area, using aseptic technique. Blood collected. Flushed with 10 mL NS. O2 via on room air. 10:30 Arm band placed on Patient placed in the treatment room, on a stretcher. EKG completed al5 in triage. Results shown to MD. EKG completed in triage. Results shown to MD. 10:30 EKG done, by ED staff, reviewed by Logan Lim MD. al5 10:41 Say Eduardo MD is Hospitalizing Provider. bo1 11:09 XRAY Chest (1 view) In Process Unspecified. EDMS 12:45 Patient admitted, IV remains in place. cm10 Administered Medications: No medications were administered Medication: 10:27 VIS not applicable for this client. al5 Outcome: 10:45 Decision to Hospitalize by Provider. bo1 12:44 Admitted to Tele accompanied by tech, via wheelchair, room 412, cm10 12:44 Condition: good 12:44 Instructed on the need for admit, 12:45 Patient left the ED. cm10 Signatures: Dispatcher [employer] EDAR Danielle Elena, Reg Reg mr Fiona House, RN RN cm10 Logan Lim MD MD bo1 Mignon Ibanez, TU RN al5 Corrections: (The following items were deleted from the chart) 10:29 10:09 Allergies: PENICILLINS; bo1 al5
--- NOTE | 2024-05-07 10:45 | EDPHYS ---
Physician Documentation [facility] Name: Fantasma Cano Age: 54 yrs Sex: Male : 1970 Arrival Date: 05/07/2024 Time: 09:55 Bed 8 Private MD: Zack Arcos B ED Physician Logan Lim HPI: 05/07 10:21 This 54 yrs old Male presents to ER via Unassigned with complaints of Chest Pain. bo1 10:21 Associated signs and symptoms: Pertinent positives: dizziness, shortness of breath. bo1 10:22 The patient or guardian reports chest pain that is located primarily in the xiphoid bo1 area and mid-sternal area. Duration: The patient or guardian reports multiple episodes, Since the new "stent's were placed.. 10:49 No radiation. Pt's spouse is present in the room.. bo1 Historical: - Allergies: 10:27 PENICILLINS; al5 - Home Meds: 10:11 ticagrelor oral [Active]; bo1 - PMHx: 10:08 Coronary atherosclerosis; bo1 10:27 Hypertensive disorder; Diabetes mellitus; al5 - PSHx: 10:27 stents; knee (R); melanoma removal to R arm; al5 - Immunization history:: Adult Immunizations up to date. - Infectious Disease History:: Denies. - Hospitalizations: : Recent stent placement - 2.5 weeks ago. - Social history:: Smoking status: Patient reports the use of cigarette tobacco products. ROS: 10:07 Constitutional: Negative for fever, chills, and weight loss, bo1 10:07 Cardiovascular: Positive for chest pain, of the chest, 10:07 Respiratory: Positive for shortness of breath, Pt "admits" to still smoke, 10:07 Neuro: Positive for dizziness, Lillian with coughing, Exam: 10:19 ECG was reviewed by the Attending Physician. bo1 10:22 Constitutional: This is a well developed, well nourished patient who is awake, alert, bo1 and in no acute distress. Neck: Trachea midline, no thyromegaly or masses palpated, and no cervical lymphadenopathy. Supple, full range of motion without nuchal rigidity, or vertebral point tenderness. No Meningismus. Abdomen/GI: Soft, non-tender, with normal bowel sounds. Ventral hernia present. No guarding or rebound. No evidence of tenderness throughout. 10:22 Musculoskeletal/extremity: Extremities: all appear grossly normal, with no appreciated pain with palpation, No edema or calf tenderness., 10:22 Skin: Exam negative for diaphoresis, Vital Signs: 10:20 BP 149 / 87; Pulse 90; Resp 18; Temp 97.5; Pulse Ox 98% on R/A; Weight 113.4 kg; Height al5 5 ft. 11 in. ; Pain 02/27; 11:55 BP 121 / 73; Pulse 92; Resp 18; Pulse Ox 97% on R/A; al5 10:20 Body Mass Index 34.87 (113.40 kg, 180.34 cm) al5 10:20 Pain Scale: Adult al5 MDM: 10:00 Patient medically screened. bo1 10:48 Data reviewed: vital signs, lab test result(s), cardiac enzymes, CBC, electrolytes, bo1 EKG. Management of patient was discussed with the following: Hospitalist: Mukesh. Dr Gordon XIONG. ED course: In pt hospitalization for planned cath. 12:09 Data reviewed: lab test result(s), cardiac enzymes, CBC, electrolytes, radiologic bo1 studies, plain films. 05/07 10:00 Order name: Basic Metabolic Panel; Complete Time: 10:48 bo05/07 10:00 Order name: CBC with Diff; Complete Time: 10:48 bo05/07 10:00 Order name: Troponin HS; Complete Time: 10:48 05/07 10:00 Order name: XRAY Chest (1 view); Complete Time: 11:41 05/07 10:00 Order name: EKG; Complete Time: 10:01 05/07 10:00 Order name: Cardiac monitoring; Complete Time: 11:11 05/07 10:00 Order name: EKG - Nurse/Tech; Complete Time: 11:11 bo05/07 10:00 Order name: IV Saline Lock; Complete Time: 11:11 bo05/07 10:00 Order name: Labs collected and sent; Complete Time: 11:11 05/07 10:00 Order name: O2 Per Protocol; Complete Time: 11:11 05/07 10:00 Order name: O2 Sat Monitoring; Complete Time: 11:05/07 10:00 Order name: NPO; Complete Time: 11:11 bo1 EC:19 Rate is 90 beats/min. Rhythm is regular. QRS [place] is Normal. [place] interval is normal. QRS bo1 interval is normal. QT interval is normal. No Q waves. T waves are Normal. No ST changes noted. Clinical impression: Normal ECG and No evidence of ischemia. Interpreted by me. Reviewed by me. Administered Medications: No medications were administered Disposition Summary: 05/07/24 10:45 Hospitalization Ordered Notes: Hospitalization Status: Inpatient Admission bo1 Provider: Say Eduardo bo1 Location: Telemetry/MedSurg (Inpatient) bo1 Condition: Stable bo1 Problem: an acute exacerbation bo1 Symptoms: are unchanged bo1 Bed/Room Type: Standard 1 Room Assignment: 412(05/07/24 11:51) bd Diagnosis - Chest pain, unspecified bo1 Forms: - Medication Reconciliation Form bo1 - SBAR form bo1 - Leadership Thank You Letter bo1 Signatures: Dispatcher [employer] EDMS Kristina Arshad Lee, [employer]EMENT TE[employer]ER-Cla1 Logan Lim MD MD bo1 Mignon Ibanez RN RN al5 Corrections: (The following items were deleted from the chart) 10:29 10:09 Allergies: PENICILLINS; bo1 al5 11:51 10:45 bo1 bd
--- NOTE | 2024-05-07 11:33 | RAD REPORT ---
EXAM DESCRIPTION: Watson Single View05/07/2024 11:07 am CLINICAL HISTORY: Chest pain COMPARISON: 2018 FINDINGS: The lungs appear clear of acute infiltrate. The heart is normal size IMPRESSION: No acute abnormalities displayed
[2024-05-07] MEDS ORDERED: MORPHINE 2 MG/ML SYR IV PRN (13:34)
[2024-05-07] MEDS: NA CHLORIDE 0.9% 1,000 ML IV SCH (13:34)
[2024-05-07] MEDS: INSULIN REGULAR (HUMAN) 100 UNIT/ML SQ SCH (13:34)
[2024-05-07 13:38] VITALS: BMI 34.8
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
[2024-05-07] MEDS: EZETIMIBE PO SCH (21:00)
[2024-05-07] MEDS: ROSUVASTATIN CALCIUM PO SCH (21:00)
[2024-05-07] MEDS ORDERED: ATORVASTATIN 80 MG TAB PO SCH (21:00)
[2024-05-07] MEDS: TICAGRELOR 90 MG TABLET PO SCH (21:07)
[2024-05-07] MEDS: METOPROLOL TAR 50 MG TAB PO SCH (21:07)
[2024-05-08 06:02] LABS: Absolute Basophils 0.1 K/uL (0-0.5); Absolute Eosinophils 0.2 K/uL (0-0.5); Absolute Lymphocytes (CBC) 1.8 K/uL (0.7-4.9); Absolute Neutrophil 7.4 K/uL (1.8-8.0); Eosinophils % 1.5 % (0-4.4); Hematocrit 41.9 % (39.6-49.0); Hemoglobin 14.2 g/dL (13.6-17.9); Lymphocytes % 16.8 % (15.3-44.8); MCHC 33.9 g/dL (32.0-36.0); MCV 97.3 fL (80-100); Monocytes % 9.6 % (3.3-12.3); Neutrophils % 71.1 % (41.7-73.7); Nucleated Red Blood Cells % 0.1 % (0-0); Platelets 302 thou/uL (152-406); RBC Red Blood Cell Count 4.31 M/uL (4.33-5.43)
[2024-05-08 06:14] LABS: Anion Gap 5.9 mEq/L (5.0-15.0); Potassium 3.9 mEq/L (3.5-5.1)
[2024-05-08] MEDS ORDERED: 9 PO SCH (06:30)
[2024-05-08] MEDS ORDERED: NITROGLYCERIN/D5W 50 MG/250 ML BTL IV ONE (07:07)
[2024-05-08] MEDS ORDERED: HEPA 1000U/500MLS 2,000 UNIT/1,000 ML BAG IV ONE ×2 (07:07→09:27)
[2024-05-08] MEDS ORDERED: VERAPAMIL HCL 10 MG/4 ML VIAL IV ONE (07:07)
[2024-05-08] MEDS ORDERED: MIDAZOLAM HCL 2 MG/2 ML INJ ONE (07:07)
[2024-05-08] MEDS ORDERED: ATROPINE SULF 1 MG/10 ML SYR IV ONE (07:07)
[2024-05-08] MEDS ORDERED: LIDOCAINE 1% 20 ML MDV ONE (07:07)
[2024-05-08] MEDS ORDERED: HEPARIN 5000 UNIT/ML 1 ML VIAL ONE (07:08)
[2024-05-08] MEDS ORDERED: HEPARIN 10,000 UNIT/10 ML VIAL IV ONE ×2 (07:08→08:15)
[2024-05-08] MEDS ORDERED: FENTANYL CITR 100 MCG/2 ML ONE (07:08)
[2024-05-08] MEDS ORDERED: TICAGRELOR 90 MG TABLET PO ONE ×2 (07:08→09:11)
[2024-05-08] MEDS ORDERED: CLOPIDOGREL 75 MG TABLET ONE (07:09)
[2024-05-08] MEDS ORDERED: ASPIRIN 325 MG TAB ONE (07:09)
[2024-05-08] MEDS ORDERED: POTASSIUM CL SA 10 MEQ TAB PO ONE (07:12)
[2024-05-08] MEDS ORDERED: NA CHLORIDE 0.9% 500 ML ONE (07:25)
[2024-05-08] MEDS: PANTOPRAZOLE 40MG TABLET PO SCH (07:30)
[2024-05-08] MEDS: ASPIRIN EC 81 MG TAB PO SCH (09:00)
[2024-05-08] MEDS ORDERED: ENOXAPARIN 40 MG/0.4 ML SQ SCH (09:00)
[2024-05-08] MEDS: lisinopriL 20 MG TAB PO SCH (09:00)
[2024-05-08] MEDS: HOME MED (Empagliflozin [Jardiance] 25 MG Tablet) PO SCH (09:00)
[2024-05-08] MEDS ORDERED: HOME MED 1 EA UNK (Omeprazole [Omeprazole] 20 MG Capsule.Dr) PO SCH (09:00)
[2024-05-08] MEDS ORDERED: ASPIRIN 81 MG CHEWABLE TABLET ONE (09:12)
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
--- NOTE | 2024-05-08 21:21 | OP ---
Date of Procedure: 05/08/2024 Surgeon: DI TAYLOR Procedures Performed: 1.Selective coronary angiogram. 2.Left heart catheterization. 3.Balloon angioplasty of severe mid left circumflex stenosis, used 2.0 x 12 mm NC balloon. 4.Bilateral inflation kissing of the mid left circumflex and the OM1 stents. I used 2.0 x 12 in the left circumflex and 3.5 x 12 mm in the OM, did simultaneous bilateral inflation kissing, excellent r esults. Indication: Unstable angina. Access: Right radial artery 6-Bermudian, closed with TR band. Complications: None. Bleeding: Less than 50 mL. Anesthesia: Total sedation time was 1 hour. Description Of Procedure: After risks, benefits, and alternatives were explained, the patient agreed to procedure and signed informed consent. The patient was brought into cardiac catheterization labo ratory, prepped and draped in usual sterile fashion. Then, I accessed right radial artery using pedi atric micropuncture kit, placed a 6-B[place]udian Slender sheath and took 5-Bermudian [place] 4 catheter into the aortic root over a J-wire, engaged left main, and then right coronary artery, took standard views, a nd the catheter was pushed over the wire into the LV, measured LVEDP. Pullback did not record any gr adient. Then, I gave systemic heparin to assure ACT level above 250 throughout the procedure and too k EBU 3.5 guide, engaged the left main, took 2 run-through wires, 1 into the OM branch through the st ent and other one through the stent struts to the left circ and then used 1.2 balloon to open the clay nt struts and then I used 2.0 x 12 mm NC balloon. Then, I took 2 balloons to perform bilateral infla tion kissing and took a 2.0 x 12 mm NC balloon in the circ and the 3.5 x 12 mm NC balloon of the OM1 branch and did simultaneous bilateral inflation kissing. Excellent results at the end. The patient tolerated the procedure very well. Wires were removed. Final angiogram was satisfactory. I removed the guide and the sheath and placed TR band for hemostasis. Findings: 1.Left main normal. 2.LAD has long proximal to mid stent with diffuse 10% ISR. 3.Left circumflex, widely patent circumflex to OM stent, but after the OM takeoff, the circ jailed 9 0% stenosis and then patent stent, status post successful balloon angioplasty and bilateral inflation kissing as above. 4.RCA, very large and aneurysmal, proximal 40% to 50% stenosis, but lumen is more than 6 mm of the v essel and then luminal irregularities throughout with mild diffuse disease. 5.Normal LVEDP at 5 mmHg. Conclusions: 1.Severe mid left circumflex stenosis, status post balloon angioplasty as above. 2.Normal LVEDP. Recommendations: Brilinta and aspirin, high-dose statin, and follow up with me in the office in 1 we ek post discharge. We will plan for stress test in 6 months. /MARILUZ Voice ID: [id number] Report ID: [id number]
--- NOTE | 2024-05-11 16:48 | EKG ---
Test Date: 2024-05-07 Test Time: 10:08:29 Data Management Associate: ZAYRA MEASUREMENT RESULTS: Intervals: Rate: 90 VT: 152 QRSD: 78 QT: 366 QTc: 447 Pala: P: 64 VT: 152 QRS: 27 T: 56 INTERPRETIVE STATEMENTS: Normal sinus rhythm Normal ECG Compared to ECG 07/06/2009 17:39:13 No significant changes Electronically Signed On 05-11-24 16:34:37 CDT by Savage Leyva
[2024-05-14 12:45] VITALS: BP 129/90; TEMP 97.9
[2024-05-14 12:55] VITALS: O2SAT 98
== END 2024-05-08 13:37 | disposition home or self-care (01) ==
LOC: ER 09:55 → ERHOLD 11:33 → 4TH 12:06
PROVIDERS: ADMIT Hospitalist; ATTEND Hospitalist
DX: I25.110 Atherosclerotic heart disease of native coronary artery with unstable angina pectoris (principal); T82.855A Stenosis of coronary artery stent, initial encounter; I10 Essential (primary) hypertension; E11.9 Type 2 diabetes mellitus without complications; E78.5 Hyperlipidemia, unspecified; F17.210 Nicotine dependence, cigarettes, uncomplicated; Z71.6 Tobacco abuse counseling; Z79.899 Other long term (current) drug therapy; Z88.0 Allergy status to penicillin; Z85.820 Personal history of malignant melanoma of skin
CPT/HCPCS: 36415; 71045; 76937; 80048; 82947; 84484; 85025; 85347; 92920; 92921; 93005; 93458; 99152; 99153; 99285; C1725; C1887; C1893; G0378; J0461; J1644; J2001; J2250; J3010; J7030; J7040; Q9967